=== PATIENT | male | born 1935 | race Caucasian/White ===

== ENCOUNTER 2016-04-29 09:10 | Inpatient (IN) | payer MEDICARE, OTHER ==
[~2016-04-29] VITALS: Ht 167.6 cm; Wt 96.0 kg
[2016-04-29 09:36] VITALS: TEMP 98.8
[2016-04-29] MEDS ORDERED: CEFTRIAXONE 1 GM/50 ML (PMX) 50 ML IVPB STA (10:27)
[2016-04-29] MEDS ORDERED: AZITHROMYCIN 500MG/NS (PMX) 250 ML IV STA (10:27)
[2016-04-29] MEDS ORDERED: SODIUM CHLORIDE 0.9% 1L BAG IV* STA (10:27)
--- NOTE | 2016-04-29 10:33 | ERA ---
ER Documentation Chief Complaint Date/Time DATE: 04/29/16 TIME: 10:30 Chief Complaint PRODUCTIVE COUGH X 1 WEEK HPI Patient is a 81-year-old male with history of type 2 diabetes who presents with 1-1/2 weeks of productive cough. Patient has become increasingly weak and short of breath during this time, but patient has not wanted to go see a doctor. Today the patient was unable to walk and his daughter and friend convinced him to come to the hospital. No vomiting, no measured fever, no chest pain, no vomiting. Patient does not have regular medical care or her regular doctor. ROS All systems reviewed and are negative except as per history of present illness. Medications Home Meds Reported Medications Saxagliptin Hcl* (Onglyza*) 2.5 Mg Tablet, 2.5 MG PO DAILY, TAB 04/29/16 Gemfibrozil* (Gemfibrozil*) 600 Mg Tablet, 600 MG PO BID, TAB 04/29/16 Clonidine Hcl* (Clonidine Hcl*) 0.1 Mg Tab, 0.1 MG PO Q4H, TAB ELEVATED SYSTOLIC BP>160 OR DAYSTOLIC BP>90. 04/29/16 Glipizide* (Glipizide*) 5 Mg Tablet, 5 MG PO BID, TAB 04/29/16 Metformin Hcl* (Metformin Hcl*) 1,000 Mg Tablet, 1000 MG PO WITH BREAKFAST DINNE , #60 TAB 04/29/16 Allergies Allergies: Coded Allergies: No Known Allergy (Unverified , 04/29/16) PMhx/Soc Past medical history: Diabetes mellitus type 2 Past surgical history: Denies Social history: No smoking or alcohol Hx Miscellaneous Medical Probl: Yes (DM) Hx Alcohol Use: No Hx Substance Use: No Hx Tobacco Use: No Smoking Status: Never smoker FmHx Family History: No coronary disease, No diabetes Physical Exam Vitals Vital Signs Date Time Temp Pulse Resp B/P Pulse Ox O2 Delivery O2 Flow Rate FiO2 04/29/16 14:02 96 37 135/70 94 Nasal Cannula 3.0 04/29/16 11:58 100 20 82/47 94 Nasal Cannula 3.0 04/29/16 11:11 Nasal Cannula 3 04/29/16 09:36 98.8 145 19 139/93 94 Nasal Cannula 3.0 04/29/16 09:36 Nasal Cannula 3.0 04/29/16 09:13 101.4 148 22 162/77 90 Physical Exam Const: Alert, oriented, in mild distress Head: Atraumatic Eyes: Normal Conjunctiva, no pallor or icterus ENT: Normal External Ears, Nose and Mouth. Neck: Full range of motion. No JVD. No meningismus. Resp: Moderate tachypnea. Right upper lobe rales, no wheezes Cardio: Regular rhythm, tachycardia, no murmurs, no gallop Abd: Soft, non tender, non distended. Skin: No petechiae or rashes Back: No midline or flank tenderness Ext: No cyanosis, or edema Neur: Awake and alert, cranial nerves II through XII intact, moves and feels 4 extremities appropriately Psych: Normal Mood and Affect Result Diagram: 04/29/1693204/29/16932 Results 24 hrs Laboratory Tests Test 04/29/16 09:33 04/29/16 10:41 04/29/16 11:42 04/29/16 12:30 Activated Partial Thromboplast Time 42.8Sec Alanine Aminotransferase (ALT/SGPT) 24IU/L Albumin 3.7g/dl Albumin/Globulin Ratio 0.94 Alkaline Phosphatase 121IU/L Anion Gap 24 Aspartate Amino Transf (AST/SGOT) 26IU/L B-Type Natriuretic Peptide 2120PG/ML Basophils # 0.010^3/ul Basophils % 0.2% Blood Urea Nitrogen 31mg/dl Calcium Level 9.0mg/dl Carbon Dioxide Level 18mmol/L Chloride Level 97mmol/L Creatinine 1.19mg/dl Direct Bilirubin 0.00mg/dl Eosinophils # 0.010^3/ul Eosinophils % 0.0% Globulin 3.90g/dl Glucose Level 550mg/dl Hematocrit 28.2% Hemoglobin 9.7g/dl INR International Normalized Ratio 1.30 Indirect Bilirubin 0.2mg/dl Lymphocytes # 1.010^3/ul Lymphocytes % 4.3% Mean Corpuscular Hemoglobin 30.4pg Mean Corpuscular Hemoglobin Concent 34.4g/dl Mean Corpuscular Volume 88.4fl Mean Platelet Volume 12.0fl Monocytes # 1.510^3/ul Monocytes % 6.2% Neutrophils # 21.110^3/ul Neutrophils % 88.6% Nucleated Red Blood Cells # 0.010^3/ul Nucleated Red Blood Cells % 0.0/100WBC Platelet Count 70961^3/UL Potassium Level 4.5mmol/L Prothrombin Time 16.3Sec Prothrombin Time Ratio 1.3 Red Blood Count 3.1910^6/ul Red Cell Distribution Width 13.0% Sodium Level 134mmol/L Total Bilirubin 0.2mg/dl Total Protein 7.6g/dl Troponin I 0.018ng/ml White Blood Count 23.810^3/ul Lactic Acid Level 2.8mmol/L 1.6mmol/L Urine Bacteria FEW Urine Bilirubin NEGATIVE Urine Clarity CLEAR Urine Color LT. YELLOW Urine Epithelial Cells OCCASIONAL Urine Glucose >=1000% Urine Hemoglobin 2+ Urine Ketones NEGATIVE Urine Leukocyte Esterase NEGATIVE Urine Microscopic RBC 5-10/HPF Urine Microscopic WBC 0-2/HPF Urine Nitrite NEGATIVE Urine Specific [place] 1.010 Urine Total Protein 1+ Urine Urobilinogen 0.2 E.U./dL Urine pH 5.5 Acetone Level (Chemistry) NEGATIVE Current Medications Medications (Trade) Dose Ordered Sig/David Route PRN Reason Start Time Stop Time Status Last Admin Dose Admin Sodium Chloride 2980 ml 2,980 ml BOLUS OVER 2 HOURS STAT IV* 04/29/16 10:27 04/29/16 10:30 DC 04/29/16 11:00 Ceftriaxone Sodium 50 ml @ 100 mls/hr ONCE STAT IVPB 04/29/16 10:27 04/29/16 10:56 DC 04/29/16 11:00 Azithromycin (Zithromax 500mg/ NS (Pmx)) 250 ml @ 250 mls/hr ONCE STAT IV 04/29/16 10:27 04/29/16 11:26 DC 04/29/16 11:00 Acetaminophen (Tylenol Tab) 1,000 mg ONCE STAT PO 04/29/16 11:24 04/29/16 11:26 DC 04/29/16 12:21 Insulin Human Regular (Humulin R) 10 unit ONCE ONCE SC 04/29/16 11:30 04/29/16 11:31 DC 04/29/16 12:23 Ondansetron HCl (Zofran Inj) 4 mg ER BRIDGE PRN IV NAUSEA AND/OR VOMITING 04/29/16 13:00 04/29/16 13:19 DC Acetaminophen (Tylenol Tab) 650 mg ER BRIDGE PRN PO MILD PAIN/FEVER 04/29/16 13:00 04/29/16 13:19 DC Clonidine (Catapres) 0.1 mg Q4H PRN PO sbp>160 04/29/16 13:00 Gemfibrozil 600 mg 600 mg BID PO 04/29/16 21:00 Azithromycin 250 ml @ 250 mls/hr DAILY IVPB 04/30/16 09:00 Ceftriaxone Sodium (Rocephin) 50 ml @ 100 mls/hr DAILY IVPB 04/30/16 09:00 Insulin Aspart (Novolog Insulin Pen) NOVOLOG *MILD* ALGORITHM WITH MEALS BEDTIME SC 04/29/16 18:00 Insulin Glargine (Lantus) 12 unit DAILY@08 SC 04/30/16 08:00 Insulin Aspart (Novolog Insulin Pen) 4 unit WITH MEALS SC 04/29/16 18:00 Miscellaneous Information (* Miscellaneous Pharmacy Order) HYPOGLYCEMIA PROTOCOL w... ONCE ONCE XX 04/29/16 13:00 04/29/16 13:12 DC Miscellaneous Information (* Miscellaneous Pharmacy Order) Discontinue Glyburide, Glipizide,... ONCE ONCE XX 04/29/16 13:00 04/29/16 13:12 DC Miscellaneous Information (* Miscellaneous Pharmacy Order) Discontinue all previ... ONCE ONCE XX 04/29/16 13:00 04/29/16 13:12 DC Amlodipine Besylate (Norvasc) 5 mg BID PO 04/29/16 21:00 Albuterol/ Ipratropium (Duoneb) 3 ml Q4HWA HHN 04/29/16 13:00 Miscellaneous Information 1 ea NOTE XX 04/29/16 13:30 Glucose (Glutose) 15 gm Q15M PRN PO DECREASED GLUCOSE 04/29/16 13:30 Glucose (Glutose) 22.5 gm Q15M PRN PO DECREASED GLUCOSE 04/29/16 13:30 Dextrose (D50w Syringe) 25 ml Q15M PRN IV DECREASED GLUCOSE 04/29/16 13:30 Dextrose (D50w Syringe) 50 ml Q15M PRN IV DECREASED GLUCOSE 04/29/16 13:30 Glucagon (Glucagen) 1 mg Q15M PRN IM DECREASED GLUCOSE 04/29/16 13:30 Glucose (Glutose) 15 gm Q15M PRN BUCCAL DECREASED GLUCOSE 04/29/16 13:30 IV Flush (NS 3 ml) 3 ml PER PROTOCOL IV 04/29/16 13:30 Ondansetron HCl (Zofran Inj) 4 mg Q6H PRN IV NAUSEA AND/OR VOMITING 04/29/16 13:30 Acetaminophen (Tylenol Tab) 650 mg Q6H PRN PO PAIN LEVEL 1-3 OR FEVER 04/29/16 13:30 Acetaminophen (Tylenol Supp) 650 mg Q6H PRN AL PAIN LEVEL 1-3 OR FEVER 04/29/16 13:30 Acetaminophen/ Hydrocodone Bitart ([place] (5/325)) 1 tab Q6H PRN PO MODERATE PAIN LEVEL 4-6 04/29/16 13:30 Acetaminophen/ Hydrocodone Bitart ([place] (5/325)) 2 tab Q6H PRN PO SEVERE PAIN LEVEL 7-10 04/29/16 13:30 Morphine Sulfate (morphine) 2 mg Q4H PRN IV SEVERE PAIN LEVEL 7-10 04/29/16 13:30 Docusate Sodium (Colace) 100 mg Q12H PRN PO CONSTIPATION 04/29/16 13:30 Magnesium Hydroxide (Milk Of Mag) 30 ml DAILY PRN PO CONSTIPATION 04/29/16 13:30 Bisacodyl (Dulcolax Supp) 10 mg DAILY PRN AL CONSTIPATION 04/29/16 13:30 Pantoprazole (Protonix Iv) 40 mg DAILY@06 IV 04/30/16 06:00 Furosemide 20 mg 20 mg DAILY IV 04/30/16 09:00 Sodium Chloride (NS) 1,000 ml @ 75 mls/hr [id number] IV 04/29/16 14:00 IV Flush 10 ml 10 ml STK-MED ONCE .ROUTE 04/29/16 14:15 04/29/16 14:16 DC 04/29/16 14:19 Sodium Chloride (NS) 100 ml @ ud STK-MED ONCE .ROUTE 04/29/16 14:15 04/29/16 14:16 DC 04/29/16 14:19 Iohexol (Omnipaque 300mg/ ml) 150 ml STK-MED ONCE .ROUTE 04/29/16 14:15 04/29/16 14:16 DC 04/29/16 14:19 Procedures/MDM EKG: Time 1101, rate 143, atrial fibrillation with rapid ventricular response, right bundle branch block, left axis deviation, no ischemic ST-T wave changes. MPRESSION: 1. There is a large elliptical density measuring up to 13 cm in long axis by 6 cm cephalocaudad in the right mid lung field. A loculated pleural effusion, round pneumonia or mass might present this fashion. A contrast-enhanced CT chest can be performed for additional evaluation if clinically indicated. Follow -up imaging is needed to confirm resolution of the density. 2. Atherosclerosis with ectasia of the thoracic aorta. 3. Spondylosis of the thoracic spine. 4. A suboptimal inspiratory effort with compressive atelectasis in the bases of the lungs. MDM: Patient with one half weeks of productive cough and progressive weakness, found to have pneumonia in the right lung. Initially tachycardic with fever so sepsis protocol initiated and patient given IV fluids and antibiotics for community-acquired pneumonia. Patient had low O2 sat on room air, with O2 sat of 91-92% on 2 L nasal cannula, and tachypnea to the 30s. Lactic acid is slightly elevated, blood pressure is high normal. EKG demonstrates new onset atrial fibrillation with tachycardia. BNP is slightly elevated, and chest x- ray shows cardiomegaly. Given likely sepsis and possibility of CHF, I felt it was best to give the patient antipyretics and fluids before attempting rate control with diltiazem, due to the risk of inducing pulmonary edema. I discussed CODE STATUS with the patient and family, and they indicated that the patient is full code at this time. There is no evidence of coronary ischemia. Glucose is 550, but there is no evidence of ketones in the urine to suggest ketoacidosis. Patient was treated with subcutaneous insulin. Potassium is normal. On reevaluation patient's heart rate has normalized and blood pressure is within normal limits. Will admit to Dr. Harrell for further workup and treatment. Critical Care: Time: 32 minutes exlcuding all billable procedures. Treatments/Evaluations: Close monitoring and treatment of unstable vital signs, cardiorespiratory, and neurologic status, while maintaining tight balance of fluid, respiratory, and cardiac interventions. Specifically, consideration of rate control in the setting of new onset A. fib with risk of inducing pulmonary edema, as well as requirement for fluid administration in the setting of sepsis, monitoring of patient with hypoxemia and tachypnea for potential worsening of symptoms which would require intubation, discussion of CODE STATUS, and consideration of diabetes related complications. Departure Diagnosis: Primary Impression: Community acquired pneumonia Additional Impressions: Hypoxemia Rapid atrial fibrillation Hyperglycemia Sepsis Condition: SHO Schroeder Apr 29, 2016 10:33
[2016-04-29 10:58] LABS: ADD SCAN DIFF NO
[2016-04-29 11:01] LABS: ABNORMAL IP MESSAGE 1; BASOPHILS % 0.2 % (0.0-2.0); HEMATOCRIT 28.2 % (42.0-52.0); HEMOGLOBIN 9.7 g/dl (14.0-18.0); LYMPHOCYTES % 4.3 % (15.0-51.0); MEAN CORPUSCULAR HEMOGLOBIN 30.4 pg (29.0-33.0); MEAN CORPUSCULAR HGB CONC 34.4 g/dl (32.0-37.0); MEAN CORPUSCULAR VOLUME 88.4 fl (82.0-101.0); MONOCYTE # 1.5 10^3/ul (0.3-0.9); MONOCYTES % 6.2 % (0.0-11.0); NEUTROPHIL # 21.1 10^3/ul (1.6-7.5); NEUTROPHILS % 88.6 % (39.0-77.0); PLATELET COUNT 282 10^3/UL (140-415); RED BLOOD COUNT 3.19 10^6/ul (4.70-6.10); WHITE BLOOD COUNT 23.8 10^3/ul (4.8-10.8)
[2016-04-29 11:12] LABS: INR 1.3; PROTIME 16.3 Sec (12.2-14.2); PT RATIO 1.3
[2016-04-29 11:13] LABS: PARTIAL THROMBOPLASTIN TIME 42.8 Sec (25.0-35.0)
[2016-04-29 11:15] LABS: ALBUMIN 3.7 g/dl (3.3-4.9); POTASSIUM 4.5 mmol/L (3.5-5.1)
[2016-04-29 11:18] LABS: ALBUMIN/GLOBULIN RATIO 0.94; BILIRUBIN,INDIRECT 0.2 mg/dl (0-1.1); BILIRUBIN,TOTAL 0.2 mg/dl (0.2-1.3); CREATININE 1.19 mg/dl (0.61-1.24); TOTAL PROTEIN 7.6 g/dl (6.1-8.1)
[2016-04-29] MEDS ORDERED: METF1000 PO (11:18)
[2016-04-29] MEDS ORDERED: GLIP5TAB13 PO (11:20)
[2016-04-29] MEDS ORDERED: SAXA2.5T PO (11:23)
[2016-04-29] MEDS ORDERED: GEMF600T60 PO (11:23)
[2016-04-29] MEDS ORDERED: CLON-379 PO (11:23)
[2016-04-29] MEDS ORDERED: ACETAMINOPHEN 500 MG TAB PO STA (11:24)
[2016-04-29 11:30] LABS: TROPONIN-I 0.018 ng/ml (0.00-0.12)
[2016-04-29] MEDS ORDERED: INSULIN REGULAR, HUMAN 100 UNIT/1 ML 3ML VIAL SC ONE (11:30)
[2016-04-29 12:01] LABS: ADD UMIC YES; URINE BILIRUBIN (Dip) NEGATIVE (NEGATIVE); URINE BLOOD (Dip) 2+ (NEGATIVE); URINE COLOR LT. YELLOW (YELLOW); URINE GLUCOSE (Dip) >=1000 % (NEGATIVE); URINE KETONES (Dip) NEGATIVE (NEGATIVE); URINE LEUKOCYTE ESTERASE (Dip) NEGATIVE (NEGATIVE); URINE NITRITE (Dip) NEGATIVE (NEGATIVE); URINE TOTAL PROTEIN (Dip) 1+ (NEGATIVE); URINE UROBILINOGEN (Dip) 0.2 E.U./dL (0.1-1.0)
--- NOTE | 2016-04-29 12:11 | RADRPT ---
PROCEDURE: XR Chest. CLINICAL INDICATION: 81 real male with sepsis. TECHNIQUE: Single frontal view of the chest was obtained COMPARISON: No. FINDINGS: The soft tissues are normal. There are degenerative osteophytes in the thoracic spine. No bone met astasis or bone destruction is noted. The heart, cardiomediastinal silhouette, pulmonary vasculatur e and hilar structures are normal. There is a nodular density projecting lateral to the right hilum. There is increased density in the right hilum. There is a suboptimal inspiration with compressive atelectasis in the bases of the lungs. There are vascular calcifications in the left sided aortic a rch. The costophrenic angles are normal. IMPRESSION: 1. There is a large elliptical density measuring up to 13 cm in long axis by 6 cm cephalocaudad in t he right mid lung field. A loculated pleural effusion, round pneumonia or mass might present this f ashion. A contrast-enhanced CT chest can be performed for additional evaluation if clinically indic ated. Follow-up imaging is needed to confirm resolution of the density. 2. Atherosclerosis with ectasia of the thoracic aorta. 3. Spondylosis of the thoracic spine. 4. A suboptimal inspiratory effort with compressive atelectasis in the bases of the lungs. RPTAT:AAJJ Physician Calista Date Time Electronically viewed and signed by Physician Calista on 04/29/2016 12:10 /
[2016-04-29 12:27] LABS: BACTERIA,URINE FEW
[2016-04-29] MEDS ORDERED: ONDANSETRON 4 MG INJ IV PRN ×2 (13:00→13:30)
[2016-04-29] MEDS ORDERED: ACETAMINOPHEN 325 MG TAB PO PRN ×2 (13:00→13:30)
[2016-04-29] MEDS ORDERED: DEXTROSE 50% 50 ML SYRINGE IV PRN ×2 (13:30)
[2016-04-29] MEDS ORDERED: BISACODYL 10 MG SUPP PR PRN (13:30)
[2016-04-29] MEDS ORDERED: GLUCOSE GEL 15 GRAM TUBE BUCCAL PRN (13:30)
[2016-04-29] MEDS ORDERED: ACETAMINOPHEN 650 MG SUPP PR PRN (13:30)
[2016-04-29] MEDS ORDERED: NACL 0.9% 3 ML SYG IV SCH (13:30)
[2016-04-29] MEDS ORDERED: DOCUSATE SODIUM 100 MG CAP PO PRN (13:30)
[2016-04-29] MEDS ORDERED: GLUCAGON 1 MG INJ IM PRN (13:30)
[2016-04-29] MEDS ORDERED: morphine 2 MG INJ IV PRN (13:30)
[2016-04-29] MEDS ORDERED: HYDROCODONE/APAP (5/325) TAB PO PRN ×2 (13:30)
[2016-04-29] MEDS ORDERED: MAGNESIUM HYDROXIDE 30ML CUP PO PRN (13:30)
[2016-04-29] MEDS ORDERED: GLUCOSE GEL 15 GRAM TUBE PO PRN ×2 (13:30)
[2016-04-29] MEDS: ALBUTEROL/IPRATROPIUM (NEB) 3 ML AMP HHN SCH (14:00)
[2016-04-29] MEDS ORDERED: IOHEXOL 300MG/ML 150 ML BTL ONE (14:15)
[2016-04-29] MEDS ORDERED: SOD CHLORIDE 0.9% 100 ML ONE (14:15)
[2016-04-29] MEDS: SOD CHLORIDE 0.9% 1,000 ML IV SCH (16:06)
--- NOTE | 2016-04-29 16:08 | RADRPT ---
PROCEDURE: CT Chest with contrast. CLINICAL INDICATION: Abnormal chest x-ray. Right middle lobe mass. TECHNIQUE: CT scan of the chest with contrast was performed following the uncomplicated intravenou s administration of 100 cc of Omnipaque-300. Coronal and sagittal reformatted images were obtained from the axial source images. Images were reviewed on a high-resolution PACS workstation. CTDIvol (m Gy): 14.88; Total Exam DLP (mGy-cm): 644.80. One or more of the following dose reduction techniques were utilized: - Automated exposure control. - Adjustment of the mA and/or kV according to patient size. - Use of iterative reconstruction technique. COMPARISON: Chest x-ray 04/29/2016. FINDINGS: Limited imaging of the lower neck is unremarkable. The heart is not enlarged. There is no pericardial effusion. There is no bulky mediastinal, hilar or axillary lymphadenopathy. Prominent mediastinal lymph nodes are present and may be reactive in na ture. The thoracic aorta is normal in caliber. Atherosclerotic calcification is present. Coronary artery calcifications are present. The pulmonary arteries are not enlarged. Low lung volumes are present. A large area of consolidation within the posterior inferior aspect of the right upper lobe along the major and a small portion of the minor fissure is present. Air bronc hograms are present. There is no displacement of vessels. Patchy ill-defined consolidation is seen within the left lower lobe. Diffuse bronchial wall thickening is observed. There is no pleural ef fusion. Limited imaging of the upper abdomen is unremarkable. Multilevel degenerative changes are present throughout the thoracic spine. Body wall soft tissues a re unremarkable. IMPRESSION: Consolidation within the right upper lobe with patchy consolidation within the left lower lobe. Irma ging appearance is most likely the result of pneumonia. Correlate with appropriate clinical laborat ory data and signs and symptomatology. Follow-up is required to ensure resolution. Mild reactive mediastinal lymphadenopathy. RPTAT: HLST .Katie Nuno MD, Date Time Electronically viewed and signed by .Katie Nuno MD, MD on 04/29/2016 16:08 .T/
[2016-04-29 17:20] VITALS: Ht 167.6 cm; Wt 96.0 kg
--- NOTE | 2016-04-29 18:15 | HP ---
DATE OF ADMISSION: 04/29/2016 CHIEF COMPLAINT: Shortness of breath and generalized weakness. HISTORY OF PRESENT ILLNESS: This is an 81-year-old male with history of hypertension, prostate canc er, diabetes, suspect dyslipidemia who came to [facility] due to reports of increa sed shortness of breath. According to the patient, he had a cold about a week ago with sore throat and coughing. He denies taking any antibiotics for this issue. He did not initially want to go to the hospital and as such progressively got weak, more notably 4 days prior to this admission. He di d report having subjective fevers. He was brought to [facility] by his daughter ebonie kohler to his increased generalized weakness. Of note, patient's family did report that patient is norm ally active and able to walk, drive the car and do house chores. When he was brought to the [facility] he was noted with a white count of 23.8. Also, slightly anemic with hemoglobin of 9.7 and hematoc rit of 28.2. He was noted with a blood glucose of 550 and a lactic acid of 2.8 with a BNP of 2120. He also was noted to have a fever of 101.4. His most recent chest x-ray also showed him to have la rge elliptical density measuring up to 13 cm in long axis x 6 cm in the right mid lung field. There was also suspect loculated pleural effusion versus round pneumonia or mass suspect for this. He wa s also seen with suboptimal inspiratory effort with compressive atelectasis in the lung bases. Curr ently, the patient remains on O2 nasal cannula on 3 liters, satting with O2 sat of 94%. He denies a ny chest pain. He does report having some shortness of breath on exertion. No nausea, vomiting or abdominal pain. No reported increase of swelling in his legs. We will evaluate him for the aforeme ntioned issues. MEDICAL AND SURGICAL HISTORY 1. Prostate cancer status post reported radiation 10 years ago. 2. Hypertension. 3. Diabetes. 4. Dyslipidemia. SOCIAL HISTORY: The patient denies any cigarette smoking, alcohol consumption or illicit drug use. ALLERGIES: NO KNOWN ALLERGIES. FAMILY HISTORY: Patient does report having on mother's side lung cancer and on father's side Lydia Ge hrig's disease as well as heart disease. HOME MEDICATIONS: 1. Clonidine 0.1 mg p.o. q.4h. for systolic blood pressure greater than 160. 2. Gemfibrozil 600 mg p.o. b.i.d. 3. Glipizide 5 mg p.o. b.i.d. 4. Metformin 1000 mg p.o. b.i.d. 5. Onglyza 2.5 mg p.o. every day. REVIEW OF SYSTEMS: A 12-point review of systems obtained and is entirely negative except that menti oned in history of present illness. PHYSICAL EXAMINATION VITAL SIGNS: Temperature is 98.8, pulse is 100, respiratory rate 20, blood pressure seen at 139/93 and pulse oximetry 94% on 3 liters nasal cannula. GENERAL: This is an 81-year-old male with no apparent distress at this time. HEENT: Pupils equal, round and reactive to light. Anicteric sclerae noted with a slight ptosis on the right eye. NECK: Supple, nontender, no JVD. CARDIOVASCULAR: S1, S2 auscultated, regular rate to tachycardic. PULMONARY: Noted with rhonchi on bilateral lung guy. ABDOMEN: Soft, nontender, nondistended. EXTREMITIES: No pitting edema bilateral lower extremities. SKIN: Warm, dry, and intact. NEUROLOGIC: Alert and oriented x3. LABORATORY DATA: Sodium 134, potassium is 4.5, BUN is 31, creatinine is 1.19, glucose 550, lactic a mike 2.8. BNP 2120. WBC 22.8, hemoglobin 9.7, hematocrit 28.2, platelets are 282. IMAGING: Chest x-ray done on 04/29/2016 did show large elliptical density measuring up to 13 cm in the long axis x 6 mm in the right mid lung field. There is differential for loculated pleural effus ion versus round pneumonia versus mass. There was also seen suboptimal inspiratory effort with comp ressive atelectasis in the lung bases and atherosclerosis of the thoracic aorta. IMPRESSION AND PLAN: 1. Sepsis, pneumonia with associated shortness of breath and generalized weakness. Will continue a ntibiotics. Follow up on leblanc cultures. We will provide with DuoNeb therapy around the clock and as needed. Continue with O2. 2. Reported atrial fibrillation with RVR. Follow up echocardiogram. 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 3. Large elliptical density measuring up to 13 cm in the long axis x 6 cm in the right mid lung fie ld. We will follow up with CT scan of the chest with contrast. 4. Uncontrolled diabetes. Patient noted with a glucose of 550 on admission. Start on insulin for now. Follow up on A1c. 5. Suspect congestive heart failure. Follow up echocardiogram. Patient with elevated BNP. Start on diuretic. 6. Anemia. Followup on iron profile. 7. Leukocytosis secondary to #1. Trend lactic acid. Continue antibiotics. 8. Deep venous thrombosis prophylaxis: Use SCDs. ADMISSION PROCESS TIME: Forty-five minutes. Discussed plan of care with Dr. Harrell. Dictated By: SERA BARROS REGISTERED ROUTE ASSOCIATE for ARABELLA HARRELL MD RR/NTS Conf#: [id number] DID#: [id number]
[2016-04-29 19:13] VITALS: PULSE 99
[2016-04-29 20:50] VITALS: PULSE 96
[2016-04-29] MEDS: INSULIN ASPART [NOVOLOG] 3 ML PEN SC SCH ×3 (21:00→22:00)
[2016-04-29 21:11] VITALS: BP 160/74; RESP 18
[2016-04-29] MEDS: AMLODIPINE 5 MG TAB PO SCH (21:52)
[2016-04-29] MEDS: GEMFIBROZIL 600 MG TAB PO SCH (21:52)
[2016-04-30] VITALS (12 sets, daily range): BP systolic 110–151; BP diastolic 53–73; PULSE 71–80; RESP 15–18
[2016-04-30] MEDS: ALBUTEROL/IPRATROPIUM (NEB) 3 ML AMP HHN SCH ×5 (01:29→20:37)
[2016-04-30] MEDS: SOD CHLORIDE 0.9% 1,000 ML IV SCH (06:06)
--- NOTE | 2016-04-30 07:37 | CONS ---
DATE OF ADMISSION: 04/29/2016 DATE OF CONSULTATION: 04/29/2016 CARDIOLOGY CONSULTATION REFERRING PHYSICIAN: Carson Harrell MD REASON FOR EVALUATION: Atrial fibrillation with rapid ventricular response, shortness of breath, ch est pain. HISTORY OF PRESENT ILLNESS: Mr. Martin is an 81-year-old gentleman with history of hypertension, pro state cancer, diabetes, history of dyslipidemia who comes to the hospital now for evaluation of shor tness of breath. The patient had sore throat and cough for several days. He presented to [facility] where he was noted to be in atrial fibrillation. I reviewed his EKG carefully. He appears to be in a fast rhythm with a heart rate of 140s; however, it is difficult to truly stat e that this is atrial fibrillation. I think any fast rhythm would look similar on EKG and now he is in sinus rhythm. I think for now conservative therapy is expected. I am not going to anticoagulat e the patient both because I am not convinced this is atrial fibrillation and also because the patie nt has large pericardial effusion which might require further surgical intervention. For now, a CT of the chest is following, will facilitate patient for a stress test given his chest pain. PAST MEDICAL HISTORY: 1. ____ prostate cancer post radiation. 2. History of hypertension. 3. Dyslipidemia. 4. History of diabetes. 5. History of debilitated state. SOCIAL HISTORY: The patient does not smoke, does not drink, does not use any drugs. FAMILY HISTORY: Negative for sudden cardiac , premature coronary artery disease. There is his tory of Lydia Gehrig's disease in the family. ALLERGIES: NO KNOWN DRUG ALLERGIES. MEDICATIONS: Clonidine 0.1 mg, gemfibrozil 600 mg b.i.d., ____/metformin 1 gram p.o. b.i.d. and Jefferson lyza. REVIEW OF SYSTEMS: CONSTITUTIONAL: No fevers, no chills, recent cough or shortness of breath. HEENT: No changes in vision or hearing. CARDIAC: Chest pain as reported. RESPIRATORY: Short of breath, acute on chronic. GASTROINTESTINAL: No nausea, vomiting, diarrhea, constipation. GENITOURINARY: No dysuria, hematuria. NEUROLOGIC: No focal deficits. HEMATOLOGIC: ____ PSYCHIATRIC: ____ PHYSICAL EXAMINATION: VITAL SIGNS: Temperature is 98.7, heart rate is 99, blood pressure ____. GENERAL: He is a well-nourished gentleman in no acute distress, alert and oriented ____, somewhat a benjamin of his condition. HEAD: Normocephalic, atraumatic. Eyes anicteric. NECK: Supple. JVD 6 to 7 cm. There is no lymphadenopathy, no thyromegaly. HEART: ____ with soft ____ murmur mid chest, changes with respiration. PMI is nondisplaced. ____ no S3. LUNGS: Coarse at bases. ABDOMEN: Distended, bowel sounds are present. There is no hepatosplenomegaly. EKG reviewed by me on admission sinus rhythm at [address] changes, SVT versus ____ ruled out. LABORATORY DATA: White blood cell count 23.8, hemoglobin 9.7, platelets 232. INR is 1.3. Troponin is negative at 0.018. ASSESSMENT AND PLAN: 1. Possible atrial fibrillation. The patient ____ report of supraventricular tachycardia, possible atrial fibrillation, although I am not convinced this is so. For now we will initiate him on aspir in 325. He is in much better rate control. We will continue to adjust therapy. The patient is on a beta ____. We will place the patient on a beta kevin as well. 2. Recurrent pleural effusion. The patient's pleural effusion might require thoracentesis. Contin ue to monitor ____, denies chest pain. The patient did not rule in for ischemia. Continue diuresis . Stress test will be facilitated for tomorrow. 3. Hypertension. Blood pressure modestly well controlled. Continue medical therapy. 4. Pneumonia. Continue patient antibiotics as needed. 5. Diabetes. Continue diabetic optimization ____. We will keep the patient euvolemic. I would like to thank Dr. Harrell for referring this patient for my evaluation. Dictated By: SWEETIE MCNEILL MD ML/JOHN Conf#: [id number] DID#: [id number]
[2016-04-30] MEDS ORDERED: INSULIN GLARGINE [LANtus] 3 ML PEN SC SCH (08:00)
[2016-04-30] MEDS ORDERED: VANCOMYCIN IV PER PHARMACY XX SCH (08:00)
[2016-04-30 08:03] LABS: POTASSIUM 3.9 mmol/L (3.5-5.1)
[2016-04-30 08:05] LABS: ALBUMIN/GLOBULIN RATIO 0.83; CREATININE 0.93 mg/dl (0.61-1.24); TOTAL PROTEIN 6.6 g/dl (6.1-8.1)
[2016-04-30 08:06] LABS: CALCIUM 8.3 mg/dl (8.4-10.2); MAGNESIUM 2.1 mg/dl (1.7-2.5); PHOSPHORUS 2.6 mg/dl (2.5-4.9)
[2016-04-30 08:07] LABS: CHOL/HDL RATIO 4.8 RATIO
[2016-04-30 08:08] LABS: IRON 17 ug/dl (35-150)
[2016-04-30 08:17] LABS: TOTAL IRON BINDING CAPACITY 266 ug/dl (241-421)
[2016-04-30 08:52] LABS: THYROID STIMULATING HORMONE 1.02 MIU/L (0.465-4.680)
[2016-04-30] MEDS: AZITHROMYCIN 500MG/NS (PMX) 250 ML IVPB SCH (09:00)
[2016-04-30] MEDS ORDERED: CEFTRIAXONE 2 GM/50 ML (PMX) 50 ML IVPB SCH (09:00)
[2016-04-30] MEDS: PANTOPRAZOLE 40 MG INJ IV SCH (09:50)
[2016-04-30] MEDS: INSULIN ASPART [NOVOLOG] 3 ML PEN SC SCH ×6 (09:54→21:00)
[2016-04-30] MEDS: GEMFIBROZIL 600 MG TAB PO SCH (09:55)
[2016-04-30] MEDS: AMLODIPINE 5 MG TAB PO SCH (09:56)
[2016-04-30] MEDS: FUROSEMIDE 20 MG INJ IV SCH (09:57)
[2016-04-30] MEDS ORDERED: VANCOMYCIN 2 GM in SOD CHLORIDE 0.9% 500 ML IVPB SCH (11:00)
[2016-04-30] MEDS ORDERED: REGADENOSON 0.4 MG/5 ML SYG ONE (11:40)
--- NOTE | 2016-04-30 12:36 | CONS ---
Date/Time of Note Date/Time of Note DATE: 04/30/16 TIME: 12:32 Assessment/Plan Assessment/Plan Chief Complaint/Hosp Course Imp: 1.abnl ecg-asses for acs-negative troponin's 2.HTN 3.H/O PAF 4.PNA 5.Elevated BNP asses for CHF Recc: -Tele -0continue gentle daily lasix diuresis -Continue abx's and f/u cx data -Will f/u echo -Lexiscan stress test today as ordered -Continue coreg/norvasc and follow BP closely Problems: Consultation Date/Type/Reason Admit Date/Time Apr 29, 2016 at 12:34 Initial Consult Date 04/29/16 Type of Consultation: Cardiology Reason for Consultation cardiac arrythmia Referring Provider: ARABELLA RODRIGUEZ Exam/Review of Systems Vital Signs Vitals Vital Signs Date Time Temp Pulse Resp B/P Pulse Ox O2 Delivery O2 Flow Rate FiO2 04/30/16 10:04 94 3.0 04/30/16 10:04 70 20 Nasal Cannula 04/30/16 08:05 97.9 132/67 Exam Review of Systems: CONSTITUTIONAL: No fevers, chills. PULMONARY: No sob CARDIOVASCULAR: No chest pain/palpitations GASTROINTESTINAL: No nausea/vomiting. GENITOURINARY: No hematuria/dysuria. MUSCULOSKELETAL: No myagias/arthalgias. PSYCHIATRIC: The patient denies depression. NEUROLOGIC: No weakness Constitutional: alert Psych: no complaints Head: normocephalic ENMT: mucosa pink and moist Neck: jvd (8-9 cm water), supple Respiratory: diminished breath sounds (at bases/B) Cardiovascular: regular rate and rhythm Gastrointestinal: non-tender, soft Musculoskeletal: muscle tone (normal) Extremities: edema (none) Neurological: other (No focal deficits) Results Result Diagram: 04/29/16 0933 04/30/16 0640 Results 24 hrs Laboratory Tests Test 04/29/16 14:29 04/29/16 20:33 04/30/16 06:40 04/30/16 08:04 Lactic Acid Level 1.9 Bedside Glucose 290 H 282 H Alanine Aminotransferase (ALT/SGPT) 26 Albumin 3.0 L Albumin/Globulin Ratio 0.83 Alkaline Phosphatase 105 Anion Gap 18 H Aspartate Amino Transf (AST/SGOT) 31 Blood Urea Nitrogen 29 H Calcium Level 8.3 L Carbon Dioxide Level 18 L Chloride Level 107 # Cholesterol Level 83 L Cholesterol/HDL Ratio 4.8 Creatinine 0.93 Direct Bilirubin 0.00 Free Thyroxine Index 2.30 Globulin 3.60 H Glucose Level 265 #H HDL Cholesterol 17 L Hemoglobin A1c 8.4 H Indirect Bilirubin 0.0 Iron Level 17 L LDL Cholesterol, Calculated 44 Magnesium Level 2.1 Percent Iron Saturation 6 L Phosphorus Level 2.6 Potassium Level 3.9 Sodium Level 139 Thyroid Stimulating Hormone (TSH) 1.020 Thyroxine (T4) 4.7 L Total Bilirubin 0.0 L Total Iron Binding Capacity 266 Total Protein 6.6 # Triglycerides Level 108 Triiodothyronine (T3) Uptake 49.0 H Medications Medications Current Medications Clonidine (Catapres) 0.1 mg Q4H PRN PO sbp>160; Start 04/29/16 at 13:00 Gemfibrozil 600 mg 600 mg BID PO Last administered on 04/30/16 09:55; Admin Dose 600 MG; Start 04/29/16 at 21:00 Azithromycin 250 ml @ 250 mls/hr DAILY IVPB ; Start 04/30/16 at 09:00 Ceftriaxone Sodium (Rocephin) 50 ml @ 100 mls/hr DAILY IVPB Last administered on 04/30/16 09:57; Admin Dose 100 MLS/HR; Start 04/30/16 at 09:00 Insulin Glargine (Lantus) 12 unit DAILY@08 SC Last administered on 04/30/16 09 :55; Admin Dose 12 UNIT; Start 04/30/16 at 08:00 Amlodipine Besylate (Norvasc) 5 mg BID PO Last administered on 04/30/16 09:56 ; Admin Dose 5 MG; Start 04/29/16 at 21:00 Miscellaneous Information 1 ea NOTE XX ; Start 04/29/16 at 13:30 Glucose (Glutose) 15 gm Q15M PRN PO DECREASED GLUCOSE; Start 04/29/16 at 13:30 Glucose (Glutose) 22.5 gm Q15M PRN PO DECREASED GLUCOSE; Start 04/29/16 at 13: 30 Dextrose (D50w Syringe) 25 ml Q15M PRN IV DECREASED GLUCOSE; Start 04/29/16 at 13:30 Dextrose (D50w Syringe) 50 ml Q15M PRN IV DECREASED GLUCOSE; Start 04/29/16 at 13:30 Glucagon (Glucagen) 1 mg Q15M PRN IM DECREASED GLUCOSE; Start 04/29/16 at 13:30 Glucose (Glutose) 15 gm Q15M PRN BUCCAL DECREASED GLUCOSE; Start 04/29/16 at 13 :30 Ondansetron HCl (Zofran Inj) 4 mg Q6H PRN IV NAUSEA AND/OR VOMITING; Start at 13:30 Acetaminophen (Tylenol Tab) 650 mg Q6H PRN PO PAIN LEVEL 1-3 OR FEVER; Start at 13:30 Acetaminophen (Tylenol Supp) 650 mg Q6H PRN DE PAIN LEVEL 1-3 OR FEVER; Start 04/29/16 at 13:30 Acetaminophen/ Hydrocodone Bitart ([place] (5/325)) 1 tab Q6H PRN PO MODERATE PAIN LEVEL 4-6; Start 04/29/16 at 13:30 Acetaminophen/ Hydrocodone Bitart ([place] (5/325)) 2 tab Q6H PRN PO SEVERE PAIN LEVEL 7-10; Start 04/29/16 at 13:30 Morphine Sulfate (morphine) 2 mg Q4H PRN IV SEVERE PAIN LEVEL 7-10; Start 04/29 at 13:30 Docusate Sodium (Colace) 100 mg Q12H PRN PO CONSTIPATION; Start 04/29/16 at 13: 30 Magnesium Hydroxide (Milk Of Mag) 30 ml DAILY PRN PO CONSTIPATION; Start at 13:30 Bisacodyl (Dulcolax Supp) 10 mg DAILY PRN DE CONSTIPATION; Start 04/29/16 at 13 :30 Pantoprazole (Protonix Iv) 40 mg DAILY@06 IV Last administered on 04/30/16 09: 50; Admin Dose 40 MG; Start 04/30/16 at 06:00 Furosemide 20 mg 20 mg DAILY IV Last administered on 04/30/16 09:57; Admin Dose 20 MG; Start 04/30/16 at 09:00 Sodium Chloride (NS) 1,000 ml @ 75 mls/hr [id number] IV Last administered on 04/30 06:06; Admin Dose 75 MLS/HR; Start 04/29/16 at 14:00 Carvedilol 12.5 mg 12.5 mg BID PO Last administered on 3/20/17at 09:56; Admin Dose 12.5 MG; Start 04/29/16 at 21:00 Vancomycin HCl/ Sodium Chloride (Vancocin/NS) 500 ml @ 125 mls/hr ONCE IVPB ; Start 04/30/16 at 11:00; Stop 04/30/16 at 15:00 FARAZ CHANCE 20, 2017 12:36
--- NOTE | 2016-04-30 14:31 | RADRPT ---
PROCEDURE: Lexiscan myocardial perfusion study CLINICAL INDICATION: 81 -year-old patient complaining of chest pain. TECHNIQUE: Lexiscan 0.4 mg intravenously separate acquisition gated myocardial perfusion SPECT usi ng Tc 99m Myoview 29.9 mCi intravenously at stress and Tc-99m Myoview, 10.0 mCi intravenously at res t was performed using the rest/stress sequence. Poststress Myoview SPECT images were obtained in th e supine position. COMPARISON: Previous study dated May 15, 2011 is not available for correlation at the time of thi s interpretation. FINDINGS: Perfusion images reveal no evidence of perfusion defects. Lexiscan post stress gated SPECT images demonstrate no wall motion abnormalities. IMPRESSION: 1. No evidence of perfusion defects. 2. No wall motion abnormalities. 3. The left ventricle ejection fraction at stress is 57% . A call report was made to Dr. Wagner at 02:31 p.m. on April 30, 2016. RPTAT: HH .Jo Ann Platt MD, Date Time Electronically viewed and signed by .Jo Ann Platt MD, on 04/30/2016 14:31 .L/
--- NOTE | 2016-04-30 14:54 | PN ---
DATE: 04/30/2016 TIME OF EVALUATION: 1330. SUBJECTIVE DATA: Denies any shortness of breath. Denies any chest pain. OBJECTIVE DATA: VITAL SIGNS: Temperature 97.9, pulse rate 72, respiratory rate 20, blood pressure 132/67, oxygen saturation 94% on low flow O2. GENERAL: This is an obese male patient lying in bed in no apparent distress. HEENT: Head normocephalic and atraumatic. Eyes: Anicteric sclerae. Conjunctivae clear. ENT: Nasal septum is midline. Oral mucosa is dry. NECK: Supple. No JVD noticed. RESPIRATORY: Bilaterally diminished breath sounds. Coarse breath sounds heard on the right side. No use of accessory muscles of respiration. CARDIAC: Regular rate and rhythm with a soft systolic murmur. ABDOMEN: Soft, nontender and nondistended. Bowel sounds positive in all 4 quadrants. GENITOURINARY: Deferred. EXTREMITIES: No cyanosis, no clubbing, no edema. Peripheral pulses are palpable. NEUROLOGIC: The patient is awake, alert and oriented. Cranial nerves are grossly intact. LABORATORY AND DIAGNOSTIC DATA: Sodium 139, potassium 3.9, chloride 107, carbon dioxide 18, anion gap 18, BUN 29 , creatinine 0.93, glucose 265, calcium 8.3, phosphorus 2.6, magnesium 2.1. ASSESSMENT AND PLAN: 1. Paroxysmal atrial fibrillation. Currently converted to sinus rhythm. The patient being followed by Cardiology. The patient to be ruled out for any underlying acute coronary syndrome. Status post cardiac stress test. 2. Right upper lobe patchy consolidation. Probably community-acquired pneumonia. Continue antibiotics. Infectious disease and pulmonary to evaluate the patient. 3. Sepsis secondary to underlying pneumonia. No evidence of septic shock. Continue antibiotics as per Infectious Disease. 4. Type 2 diabetes mellitus, uncontrolled. Hemoglobin A1c 8.4. Continue the patient on sliding scale insulin along with Lantus insulin, premeal insulin, and basal insulin. Adjust insulin dosing to obtain optimal blood sugar control. 5. Normocytic normochromic anemia. Iron panel showing iron deficiency. Will start the patient on iron supplements. 6. History of prostate cancer, status post treatment. 7. Fluid, electrolytes and nutrition. Carbohydrate controlled, low cholesterol diet. 8. Gastrointestinal prophylaxis. Proton pump inhibitors. 9. DVT prophylaxis. Bilateral sequential compression devices. PLAN: Continue antibiotics as per infectious diseases. Pending pulmonology consult. Follow Cardiology recommendations. Case discussed with Dr. Marcelo. CYNDIE MARCELO MD, AM/JOHN Conf#: [id number] DID#: [id number] MTDD
--- NOTE | 2016-04-30 15:14 | CONS ---
Date/Time of Note Date/Time of Note DATE: 04/30/16 TIME: 15:09 Assessment/Plan Assessment/Plan Additional Assessment/Plan X-ray was reviewed from today as well as CT of the chest which is showing dense consolidation involving the right upper lobe area. Assessment recommendations; 1. Patient admitted for community acquired pneumonia involving the right upper lobe with very dense consolidation. 2. History of diabetes, hypertension. 3. Mild wheezing. Add cefepime 1 g IV every 12. Continue vancomycin and Zithromax. Add DuoNeb every 6 hours. Monitor blood sugars. We will plan on follow-up chest x-ray in 48 hours. Consultation Date/Type/Reason Admit Date/Time Apr 29, 2016 at 12:34 Date of Consultation: Apr 30, 2016 Type of Consultation: Pulmonary Reason for Consultation Pulmonary consultations requested for evaluation of pneumonia. Next History presenting; patient is a pleasant 80-year-old white male who came into the hospital yesterday with a 3 day history of increasing cough, shortness of breath. Patient denies any coughing up of any blood, any sputum production. Any chest pain. He also denies any history of fever or chills. Upon evaluation a chest x-ray was done which is showing dense consolidation involving the right upper lobe.. CT scan of chest also was done which is showing similar findings. The patient is somewhat better since admission. According to him he was fine until 2 days ago when the symptoms started. Denies any chronic shortness of breath. Any chronic cough or wheezing. Next Past medical history; 1. History of hyperlipidemia. 2. History of hypertension. 3. History of diabetes. 4. No history of any coronary artery disease. No history of any surgeries. Medications; were reviewed. Allergies; are none. Next Social history; patient never smoked. No swelling or drug abuse. Family history; patient is a . He has 1 child. No show any illnesses in the family. Occupational history; patient was a duarte. Review of systems; denies any headache, any visual changes. Any sinus symptoms. Denies any dysphagia, odynophagia. Any high fever or chills. Any body aches or myalgias. Any chest pain. Because of cough is very scant sputum production. Denies hemoptysis. Any night sweats or fever. Any weight loss. Denies any melena or hematochezia. Any reflux. Does complain of frequency of urination with urgency. General exam; elderly male, currently in no distress, awake and alert. Psychological: no complaints Social History Smoking Status: Never smoker Exam/Review of Systems Vital Signs Vitals Vital Signs Date Time Temp Pulse Resp B/P Pulse Ox O2 Delivery O2 Flow Rate FiO2 04/30/16 14:48 74 20 96 Nasal Cannula 3.0 04/30/16 08:05 97.9 132/67 Exam HEENT exam is; supple neck, no JVD. No lymphadenopathy. Midline trachea. No thyromegaly. Pharynx is clear. Patient multiple dental caps. Pupils are midsize and reactive to light. Extraocular movements are intact. Chest examination; diminished breath sound bilaterally with mild bilateral expiratory wheezing. S1-S2 audible no murmurs regular rhythm. Abdomen examination; soft, nondistended. No organomegaly. Bowel sounds audible. Extremity examination; no peripheral edema. Pulses 1+ bilaterally. No clubbing. SCREEDMAN examination; cranial nerves are intact. There is no motor deficit. Results Result Diagram: 04/29/16 0933 04/30/16 0640 Results 24 hrs Laboratory Tests Test 04/29/16 20:33 04/30/16 06:40 04/30/16 08:04 Bedside Glucose 290 H 282 H Alanine Aminotransferase (ALT/SGPT) 26 Albumin 3.0 L Albumin/Globulin Ratio 0.83 Alkaline Phosphatase 105 Anion Gap 18 H Aspartate Amino Transf (AST/SGOT) 31 Blood Urea Nitrogen 29 H Calcium Level 8.3 L Carbon Dioxide Level 18 L Chloride Level 107 # Cholesterol Level 83 L Cholesterol/HDL Ratio 4.8 Creatinine 0.93 Direct Bilirubin 0.00 Free Thyroxine Index 2.30 Globulin 3.60 H Glucose Level 265 #H HDL Cholesterol 17 L Hemoglobin A1c 8.4 H Indirect Bilirubin 0.0 Iron Level 17 L LDL Cholesterol, Calculated 44 Magnesium Level 2.1 Percent Iron Saturation 6 L Phosphorus Level 2.6 Potassium Level 3.9 Sodium Level 139 Thyroid Stimulating Hormone (TSH) 1.020 Thyroxine (T4) 4.7 L Total Bilirubin 0.0 L Total Iron Binding Capacity 266 Total Protein 6.6 # Triglycerides Level 108 Triiodothyronine (T3) Uptake 49.0 H Medications Medications Current Medications Clonidine (Catapres) 0.1 mg Q4H PRN PO sbp>160; Start 04/29/16 at 13:00 Gemfibrozil 600 mg 600 mg BID PO Last administered on 04/30/16 09:55; Admin Dose 600 MG; Start 04/29/16 at 21:00 Azithromycin 250 ml @ 250 mls/hr DAILY IVPB Last administered on 04/30/16 09: 00; Admin Dose 250 MLS/HR; Start 04/30/16 at 09:00 Ceftriaxone Sodium (Rocephin) 50 ml @ 100 mls/hr DAILY IVPB Last administered on 04/30/16 09:57; Admin Dose 100 MLS/HR; Start 04/30/16 at 09:00 Amlodipine Besylate (Norvasc) 5 mg BID PO Last administered on 04/30/16 09:56 ; Admin Dose 5 MG; Start 04/29/16 at 21:00 Miscellaneous Information 1 ea NOTE XX ; Start 04/29/16 at 13:30 Glucose (Glutose) 15 gm Q15M PRN PO DECREASED GLUCOSE; Start 04/29/16 at 13:30 Glucose (Glutose) 22.5 gm Q15M PRN PO DECREASED GLUCOSE; Start 04/29/16 at 13: 30 Dextrose (D50w Syringe) 25 ml Q15M PRN IV DECREASED GLUCOSE; Start 04/29/16 at 13:30 Dextrose (D50w Syringe) 50 ml Q15M PRN IV DECREASED GLUCOSE; Start 04/29/16 at 13:30 Glucagon (Glucagen) 1 mg Q15M PRN IM DECREASED GLUCOSE; Start 04/29/16 at 13:30 Glucose (Glutose) 15 gm Q15M PRN BUCCAL DECREASED GLUCOSE; Start 04/29/16 at 13 :30 Ondansetron HCl (Zofran Inj) 4 mg Q6H PRN IV NAUSEA AND/OR VOMITING; Start at 13:30 Acetaminophen (Tylenol Tab) 650 mg Q6H PRN PO PAIN LEVEL 1-3 OR FEVER; Start at 13:30 Acetaminophen (Tylenol Supp) 650 mg Q6H PRN [place] PAIN LEVEL 1-3 OR FEVER; Start 04/29/16 at 13:30 Acetaminophen/ Hydrocodone Bitart ([place] (5/325)) 1 tab Q6H PRN PO MODERATE PAIN LEVEL 4-6; Start 04/29/16 at 13:30 Acetaminophen/ Hydrocodone Bitart ([place] (5/325)) 2 tab Q6H PRN PO SEVERE PAIN LEVEL 7-10; Start 04/29/16 at 13:30 Morphine Sulfate (morphine) 2 mg Q4H PRN IV SEVERE PAIN LEVEL 7-10; Start 04/29 at 13:30 Docusate Sodium (Colace) 100 mg Q12H PRN PO CONSTIPATION; Start 04/29/16 at 13: 30 Magnesium Hydroxide (Milk Of Mag) 30 ml DAILY PRN PO CONSTIPATION; Start at 13:30 Bisacodyl (Dulcolax Supp) 10 mg DAILY PRN [place] CONSTIPATION; Start 04/29/16 at 13 :30 Pantoprazole (Protonix Iv) 40 mg DAILY@06 IV Last administered on 04/30/16 09: 50; Admin Dose 40 MG; Start 04/30/16 at 06:00 Furosemide (Lasix) 20 mg DAILY IV Last administered on 04/30/16 09:57; Admin Dose 20 MG; Start 04/30/16 at 09:00 Carvedilol 12.5 mg 12.5 mg BID PO Last administered on 04/30/16 09:56; Admin Dose 12.5 MG; Start 04/29/16 at 21:00 Ferric Sodium Gluconate Complex/ Sodium Chloride (Ferrlecit/NS) 110 ml @ 100 mls/hr Q24H IVPB ; Start 04/30/16 at 14:30; Stop 05/02/16 at 15:35 Insulin Glargine 15 unit 15 unit DAILY@08 SC ; Start 05/01/16 at 08:00 Vancomycin HCl/ Sodium Chloride (Vancocin/NS) 250 ml @ 83.333 mls/ hr Q24H IVPB ; Start 05/01/16 at 12:00 ROSA BOOKER 20, 2017 15:13
--- NOTE | 2016-04-30 18:32 | RADRPT ---
Echocardiogram Report Patient Name: FARAZ ROJAS Gender: Male Date: 1935 Study Date: 30-Apr-2016 Transportation Associate: [employer] [facility] Location: [id number] Ref. Physician: SERA BARROS Quality: Good Procedures: Transthoracic echocardiogram with complete 2D, M-Mode, and doppler examination. Indications: Shortness of breath. 2D/M Mode Doppler Measurement Value Normal Ranges Measurement Value Normal Ranges LVIDd 2D 5.3 3.5 - 5.6 cm AV Peak Ketan 1.7 m/sec LVIDs 2D 2.7 2.1 - 4.1 cm AV Peak PG 11.0 mmHg FS 2D 49.0 % AI Peak PG 56.0 mmHg LVPWd 2D 1.0 0.6 - 1.1 cm AI Peak Ketan 3.7 m/sec IVSd 2D 1.2 0.6 - 1.1 cm AI PHT 446.0 msec IVS/LVPW 2D 1.2 LVOT Peak Ketan 1.0 m/sec AoR Diam 2D 3.1 2.0 - 3.7 cm LVOT Peak PG 4.0 mmHg LA/Ao 2D 1 0 - 1 MV E Peak Ketan 0.8 m/sec EDV 2D 151.0 cm3 MV A Peak Ketan 1.0 m/sec ESV 2D 20.1 cm3 MV E/A 0.8 LA Dimen 2D 3.7 2.3 - 4.0 cm MV Decel Time 215 msec MV E/A 0.8 TR Peak Ketan 2.5 m/sec TR Peak PG 24.0 mmHg RVSP 32.0 mmHg Findings Left Ventricle: Normal left ventricular systolic function. Normal left ventricular cavity size. Mild concentric left ventricular hypertrophy. Ejection fraction is visually estimated at 60 %. Tissue Doppler/Mitral Doppler indices are consistent with impaired relaxation (Stage I diastolic dysfunction). Right Ventricle: Normal right ventricular size. Normal right ventricular systolic function. Left Atrium: The left atrium is normal in size. Right Atrium: The right atrium is normal in size. Mitral Valve: Mitral valve leaflets appear mildly thickened. Mild mitral annular calcification. Trace mitral regurgitation. Aortic Valve: No hemodynamically significant aortic stenosis by doppler. Aortic cusps appear mildly calcified. Mild aortic valve regurgitation. Tricuspid Valve: Normal appearance of the tricuspid valve. Estimated peak PA systolic pressure 32 mmHg. There is mild tricuspid regurgitation. Pulmonic Valve: Normal pulmonic valve appearance. Pericardium: Normal pericardium with no significant pericardial effusion. Aorta: Normal aortic root. IVC: Dilated IVC with respiratory collapse consistent with elevated right atrial pressure. Conclusions 1.Normal left ventricular systolic function. Normal left ventricular cavity size. Mild concentric left ventricular hypertrophy. Ejection fraction is visually estimated at 60 %. Tissue Doppler/Mitral Doppler indices are consistent with impaired relaxation (Stage I diastolic dysfunction). 2.Mitral valve leaflets appear mildly thickened. Mild mitral annular calcification. Trace mitral regurgitation. 3.No hemodynamically significant aortic stenosis by doppler. Aortic cusps appear mildly calcified. Mild aortic valve regurgitation. 4.Normal appearance of the tricuspid valve. Estimated peak PA systolic pressure 32 mmHg. There is mild tricuspid regurgitation. Electronically Signed By: Faraz Wagner 30-Apr-2016 18:31:51 -0700 Patient Name: FARAZ ROJAS Study Date: 30-Apr-2016 [id number]
--- NOTE | 2016-04-30 20:55 | CONS ---
DATE OF ADMISSION: 04/29/2016 DATE OF CONSULTATION: 04/30/2016 ELECTROGRAM CARDIAC STRESS TEST REASON FOR STRESS TESTING: Abnormal electrocardiogram, assess for ischemia. Baseline vital signs electrocardiogram: Pulse of 73, blood pressure 132/71. Electrocardiogram revea ls normal sinus rhythm, rate of 73 with left axis deviation, right bundle branch block, left anterio r fascicular block, secondary repolarization abnormalities. PROCEDURE: The patient underwent standard Lexiscan infusion protocol over 10 seconds followed by ra diolabeled tracer. The patient's test was stopped due to completion of protocol. Maximal achieved blood pressure during the test 120/61. Maximum heart rate during the test 83. ECG FINDINGS: The patient did not develop any new Lexiscan-induced ST or T-wave changes from baseli ne abnormalities. No documented PVCs. SYMPTOMS: The patient had no complaints of chest pain or shortness of breath during stress testing. IMPRESSION: 1. No Lexiscan-induced ST or T-wave changes from baseline abnormalities or diagnostic cardiac ische yakov. 2. No complaints of chest pain or shortness of breath during stress testing. 3. No documented premature ventricular contractions during stress testing. 4. Report of nuclear images to follow in separate dictation. Dictated By: FARAZ ROONEY/JOHN Conf#: [id number] DID#: [id number] CC: ARABELLA RODRIGUEZ MD;*EndCC*
--- NOTE | 2016-04-30 21:05 | PN ---
DATE: SUBJECTIVE: No acute changes overnight. The patient is alert, denies pain, looks comfortable, no f jeremy. VITAL SIGNS: Temperature 97.9, pulse 70, respirations 20, blood pressure 130/67, saturation 96% on 2 liters. WBC: 23.8 yesterday with platelets 282, neutrophils 88.6. BUN today 29, creatinine 0.93. MICROBIOLOGY: Blood culture growing gram-positive cocci in pairs and chains since yesterday. ANTIMICROBIALS: The patient is on: 1. Vancomycin. 2. Zithromax. 3. Rocephin. ALLERGIES: NONE. PHYSICAL EXAMINATION: GENERAL: This is well-developed, elderly white man who is alert, in no distress. HEENT: Head atraumatic, normocephalic. Sclerae anicteric. Buccal mucosa pink. NECK: Supple. CHEST: Rise symmetrical. Breath sounds diminished to bases. HEART: S1, S2. ABDOMEN: Soft, bowel tones present. EXTREMITIES: Without cyanosis. ASSESSMENT: 1. Sepsis with fevers and leukocytosis present on admission. 2. Gram-positive cocci bacteremia, unclear etiology. 3. Pneumonia. 4. Arrhythmia. 5. Poorly controlled diabetes. PLAN: We are going to continue the patient on current antimicrobials. We will order 2D echo to rul e out vegetations. Repeat blood cultures, follow labs and chest x-ray in a.m. Follow recommendatio ns of consultants. Dictated By: ANNA MISHRA ORGAN ASSEMBLER for RUDY FERNANDES/JOHN Conf#: [id number] DID#: [id number]
[2016-05-01] VITALS (11 sets, daily range): BP systolic 107–158; BP diastolic 51–75; PULSE 71–78; RESP 15–20
[2016-05-01] MEDS: GEMFIBROZIL 600 MG TAB PO SCH ×3 (01:51→20:38)
[2016-05-01] MEDS: AMLODIPINE 5 MG TAB PO SCH ×3 (01:52→20:38)
[2016-05-01] MEDS: CEFEPIME 1GM/50 ML (PMX) 50 ML IVPB SCH ×3 (01:53→20:37)
[2016-05-01] MEDS: SOD FERRIC GLUC COMPLX 125 MG in SOD CHLORIDE 0.9% 100 ML IVPB SCH ×2 (01:58→14:47)
[2016-05-01] MEDS ORDERED: INSULIN ASPART [NOVOLOG] 3 ML PEN SC ONE (02:30)
[2016-05-01 07:44] LABS: ADD SCAN DIFF NO
[2016-05-01 07:53] LABS: BASOPHILS % 0.1 % (0.0-2.0); EOSINOPHILS % 0.2 % (0.0-7.0); LYMPHOCYTES % 6.8 % (15.0-51.0); MEAN CORPUSCULAR HGB CONC 32.1 g/dl (32.0-37.0); MEAN CORPUSCULAR VOLUME 90.3 fl (82.0-101.0); MEAN PLATELET VOLUME 11.6 fl (7.4-10.4); MONOCYTE # 0.9 10^3/ul (0.3-0.9); MONOCYTES % 6.3 % (0.0-11.0); NEUTROPHIL # 12.3 10^3/ul (1.6-7.5); NEUTROPHILS % 85.4 % (39.0-77.0); PLATELET COUNT 303 10^3/UL (140-415); RED CELL DISTRIBUTION WIDTH 13.6 % (11.5-14.5); WHITE BLOOD COUNT 14.4 10^3/ul (4.8-10.8)
[2016-05-01] MEDS ORDERED: INSULIN GLARGINE [LANtus] 3 ML PEN SC SCH (08:00)
[2016-05-01 08:08] LABS: MAGNESIUM 2.1 mg/dl (1.7-2.5); PHOSPHORUS 2.3 mg/dl (2.5-4.9)
[2016-05-01] MEDS: AZITHROMYCIN 500MG/NS (PMX) 250 ML IVPB SCH (08:11)
[2016-05-01] MEDS: FUROSEMIDE 20 MG INJ IV SCH (08:12)
[2016-05-01] MEDS: INSULIN ASPART [NOVOLOG] 3 ML PEN SC SCH ×7 (08:13→20:42)
[2016-05-01 08:18] LABS: POTASSIUM 3.3 mmol/L (3.5-5.1)
[2016-05-01 08:21] LABS: CREATININE 0.84 mg/dl (0.61-1.24)
[2016-05-01 08:22] LABS: CALCIUM 8.6 mg/dl (8.4-10.2)
[2016-05-01] MEDS: ALBUTEROL/IPRATROPIUM (NEB) 3 ML AMP HHN SCH ×4 (09:07→20:13)
--- NOTE | 2016-05-01 09:36 | CONS ---
Date/Time of Note Date/Time of Note DATE: 05/01/16 TIME: 09:33 Assessment/Plan Assessment/Plan Additional Assessment/Plan 1. SVT - less likely a. fib - now in sinus- ASA 325 mg po qday for now. Patient on a beta kevin as well. 2. Recurrent pleural effusion. The patient's pleural effusion might require thoracentesis. Continue to monitor 3. Abnormal Stress test - EF 60, small inferior defect - will defer to Dr. Wagner if intervention is warranted vs. med rx. 3. Hypertension. Blood pressure modestly well controlled. Continue medical therapy. 4. Pneumonia. Continue patient antibiotics as needed. 5. Diabetes. Continue diabetic optimization . We will keep the patient euvolemic. 6. CHF - diast HF, acute on chronic - con't gentle diuresis - consider D/c adam. Consultation Date/Type/Reason Admit Date/Time Apr 29, 2016 at 12:34 Initial Consult Date 04/30/16 Type of Consultation: Pulmonary Referring Provider: ARABELLA RODRIGUEZ 24 HR Interval Summary Free Text/Dictation Feels better - no new sVT - Abnormal Stress test - EF 60, small inferior defect - will defer to Dr. Wagner if intervention is warranted vs. med rx. ROS: No fever, no chills, no nausea, no vomiting, no diarrhea/constipation No recent weight changes No chest pain, no PND, no orthopnea No dizziness, blurred vision No thirst, no heat or cold intolerance Exam/Review of Systems Vital Signs Vitals Vital Signs Date Time Temp Pulse Resp B/P Pulse Ox O2 Delivery O2 Flow Rate FiO2 05/01/16 07:22 98.7 79 20 158/75 96 05/01/16 02:22 3.0 04/30/16 20:39 Nasal Cannula Intake and Output 04/30/16 04/30/16 05/01/16 15:00 23:00 07:00 Intake Total 300 ml 1120 ml Output Total 1950 ml 200 ml Balance 300 ml -830 ml -200 ml Exam General: WN/WD/NAD, AOx 3 HEENT: Unicetric/atraumatic/EOMI (follow commands) NECK: JVD elevated, no thyromegaly Lymph: no lymphadenopathy HEART: regular with no S3, II/ systolic murmur at apex LUNGS: Coarse sounds ABD: soft, NT, ND, +BS : Intact, [place] Neuro: non focal SKIN: chronic changes EXT: trace edema Results Result Diagram: 05/01/16 0643 05/01/16 0645 Results 24 hrs Laboratory Tests Test 04/30/16 18:03 05/01/16 01:56 05/01/16 06:43 05/01/16 06:45 Bedside Glucose 418 *H 543 *H Basophils # 0.0 Basophils % 0.1 Eosinophils # 0.0 Eosinophils % 0.2 Hematocrit 28.0 L Hemoglobin 9.0 L Lymphocytes # 1.0 Lymphocytes % 6.8 L Magnesium Level 2.1 Mean Corpuscular Hemoglobin 29.0 Mean Corpuscular Hemoglobin Concent 32.1 Mean Corpuscular Volume 90.3 Mean Platelet Volume 11.6 H Monocytes # 0.9 Monocytes % 6.3 Neutrophils # 12.3 H Neutrophils % 85.4 H Nucleated Red Blood Cells # 0.0 Nucleated Red Blood Cells % 0.0 Phosphorus Level 2.3 L Platelet Count 303 Red Blood Count 3.10 L Red Cell Distribution Width 13.6 White Blood Count 14.4 #H Anion Gap 17 H Blood Urea Nitrogen 30 H Calcium Level 8.6 Carbon Dioxide Level 20 L Chloride Level 110 Creatinine 0.84 Glucose Level 190 Potassium Level 3.3 L Sodium Level 144 Test 05/01/16 07:52 Bedside Glucose 234 H Medications Medications Current Medications Clonidine (Catapres) 0.1 mg Q4H PRN PO sbp>160; Start 04/29/16 at 13:00 Gemfibrozil 600 mg 600 mg BID PO Last administered on 05/01/16 08:10; Admin Dose 600 MG; Start 04/29/16 at 21:00 Azithromycin (Zithromax 500mg/ NS (Pmx)) 250 ml @ 250 mls/hr DAILY IVPB Last administered on 05/01/16 08:11; Admin Dose 250 MLS/HR; Start 04/30/16 at 09:00 Amlodipine Besylate (Norvasc) 5 mg BID PO Last administered on 05/01/16 08:10 ; Admin Dose 5 MG; Start 04/29/16 at 21:00 Miscellaneous Information 1 ea NOTE XX ; Start 04/29/16 at 13:30 Glucose (Glutose) 15 gm Q15M PRN PO DECREASED GLUCOSE; Start 04/29/16 at 13:30 Glucose (Glutose) 22.5 gm Q15M PRN PO DECREASED GLUCOSE; Start 04/29/16 at 13: 30 Dextrose (D50w Syringe) 25 ml Q15M PRN IV DECREASED GLUCOSE; Start 04/29/16 at 13:30 Dextrose (D50w Syringe) 50 ml Q15M PRN IV DECREASED GLUCOSE; Start 04/29/16 at 13:30 Glucagon (Glucagen) 1 mg Q15M PRN IM DECREASED GLUCOSE; Start 04/29/16 at 13:30 Glucose (Glutose) 15 gm Q15M PRN BUCCAL DECREASED GLUCOSE; Start 04/29/16 at 13 :30 Ondansetron HCl (Zofran Inj) 4 mg Q6H PRN IV NAUSEA AND/OR VOMITING; Start at 13:30 Acetaminophen (Tylenol Tab) 650 mg Q6H PRN PO PAIN LEVEL 1-3 OR FEVER; Start at 13:30 Acetaminophen (Tylenol Supp) [address] PAIN LEVEL 1-3 OR FEVER; Start 04/29/16 at 13:30 Acetaminophen/ Hydrocodone Bitart ([place] (5/325)) 1 tab Q6H PRN PO MODERATE PAIN LEVEL 4-6; Start 04/29/16 at 13:30 Acetaminophen/ Hydrocodone Bitart ([place] (5/325)) 2 tab Q6H PRN PO SEVERE PAIN LEVEL 7-10; Start 04/29/16 at 13:30 Morphine Sulfate (morphine) 2 mg Q4H PRN IV SEVERE PAIN LEVEL 7-10; Start 04/29 at 13:30 Docusate Sodium (Colace) 100 mg Q12H PRN PO CONSTIPATION; Start 04/29/16 at 13: 30 Magnesium Hydroxide (Milk Of Mag) 30 ml DAILY PRN PO CONSTIPATION; Start at 13:30 Bisacodyl (Dulcolax Supp) [address] CONSTIPATION; Start 04/29/16 at 13 :30 Pantoprazole (Protonix Iv) 40 mg DAILY@06 IV Last administered on 04/30/16 09: 50; Admin Dose 40 MG; Start 04/30/16 at 06:00 Furosemide (Lasix) 20 mg DAILY IV Last administered on 05/01/16 08:12; Admin Dose 20 MG; Start 04/30/16 at 09:00 Carvedilol 12.5 mg 12.5 mg BID PO Last administered on 05/01/16 08:11; Admin Dose 12.5 MG; Start 04/29/16 at 21:00 Ferric Sodium Gluconate Complex/ Sodium Chloride (Ferrlecit/NS) 110 ml @ 100 mls/hr Q24H IVPB Last administered on 05/01/16 01:58; Admin Dose 100 MLS/HR; Start 04/30/16 at 14:30; Stop 05/02/16 at 15:35 Insulin Glargine 15 unit 15 unit DAILY@08 SC Last administered on 05/01/16 08: 12; Admin Dose 15 UNIT; Start 05/01/16 at 08:00 Vancomycin HCl 1.5 gm/Sodium Chloride 250 ml @ 83.333 mls/ hr Q24H IVPB ; Start 05/01/16 at 12:00 Cefepime HCl (Maxipime 1gm/50 ml (Pmx)) 50 ml @ 100 mls/hr Q12 IVPB Last administered on 05/01/16 01:53; Admin Dose 100 MLS/HR; Start 04/30/16 at 21:00 SWEETIE MCNEILL MD May 01, 2016 09:36
--- NOTE | 2016-05-01 11:18 | PN ---
DATE: 05/01/2016 SUBJECTIVE: Mr. Martin is stable this morning, says he is less short of breath than yesterday. PHYSICAL EXAMINATION: VITAL SIGNS: Temperature 98, pulse 76, blood pressure 158/75, O2 saturation 96% on 3 L nasal cannul a. NECK: Supple. No JVD or lymphadenopathy. CARDIAC: S1, S2. No added sounds or murmurs. CHEST: Diminished air entry bilaterally. ABDOMEN: Soft, nontender. No guarding or rebound. EXTREMITIES: No cyanosis, clubbing, edema. NEUROLOGIC: Generalized weakness, but no focal deficits. LABORATORY DATA: White count 15.4, hemoglobin 9.1, platelets of 303. BUN 30, creatinine 0.84. INR 1.3. IMPRESSION AND PLAN: 1. Community-acquired pneumonia. 2. Significant hypoxemia secondary to above. 3. Gram-positive cocci bacteremia. PLAN: 1. Continue antibiotics. 2. Continue pulmonary toilet. 3. Continue DVT and GI prophylaxis. Dictated By: KAYY MALONEY/JOHN Conf#: [id number] DID#: [id number]
[2016-05-01] MEDS ORDERED: VANCOMYCIN 1.5 GM in SOD CHLORIDE 0.9% 250 ML IVPB SCH (12:00)
[2016-05-01] MEDS: PANTOPRAZOLE 40 MG INJ IV SCH (12:19)
--- NOTE | 2016-05-01 14:19 | CONS ---
Date/Time of Note Date/Time of Note DATE: 05/01/16 TIME: 14:16 Assessment/Plan Assessment/Plan Chief Complaint/Hosp Course SUBJECTIVE: No acute changes overnight. The patient is alert, denies pain, looks comfortable, no fevers. MICROBIOLOGY: Blood culture growing Strep ANTIMICROBIALS: The patient is on: 1. Vancomycin. 2. Zithromax. 3. Rocephin. ALLERGIES: NONE. PHYSICAL EXAMINATION: GENERAL: This is well-developed, elderly white man who is alert, in no distress. HEENT: Head atraumatic, normocephalic. Sclerae anicteric. Buccal mucosa pink. NECK: Supple. CHEST: Rise symmetrical. Breath sounds diminished to bases. HEART: S1, S2. ABDOMEN: Soft, bowel tones present. EXTREMITIES: Without cyanosis. ASSESSMENT: 1. Sepsis with fevers and leukocytosis present on admission. 2. Strep bacteremia==> poss pulmonary source, r/o SBE 3. Pneumonia==> likely strep. 4. Arrhythmia. 5. Poorly controlled diabetes. PLAN: Clinically stable, pending ECHO, pending repeat bld cx, dc Vanco, continue abx, f/u pulmonary rec-s DW staff Problems: Consultation Date/Type/Reason Admit Date/Time Apr 29, 2016 at 12:34 Initial Consult Date 04/30/16 Type of Consultation: ID Referring Provider: ARABELLA RODRIGUEZ Exam/Review of Systems Vital Signs Vitals Vital Signs Date Time Temp Pulse Resp B/P Pulse Ox O2 Delivery O2 Flow Rate FiO2 05/01/16 12:00 74 05/01/16 11:54 98.0 20 109/53 93 05/01/16 09:08 Nasal Cannula 3.0 Intake and Output 04/30/16 04/30/16 05/01/16 15:00 23:00 07:00 Intake Total 300 ml 1120 ml Output Total 1950 ml 200 ml Balance 300 ml -830 ml -200 ml Results Result Diagram: 05/01/16 0643 05/01/16 0645 Results 24 hrs Laboratory Tests Test 04/30/16 18:03 05/01/16 01:56 05/01/16 06:43 05/01/16 06:45 Bedside Glucose 418 *H 543 *H Basophils # 0.0 Basophils % 0.1 Eosinophils # 0.0 Eosinophils % 0.2 Hematocrit 28.0 L Hemoglobin 9.0 L Lymphocytes # 1.0 Lymphocytes % 6.8 L Magnesium Level 2.1 Mean Corpuscular Hemoglobin 29.0 Mean Corpuscular Hemoglobin Concent 32.1 Mean Corpuscular Volume 90.3 Mean Platelet Volume 11.6 H Monocytes # 0.9 Monocytes % 6.3 Neutrophils # 12.3 H Neutrophils % 85.4 H Nucleated Red Blood Cells # 0.0 Nucleated Red Blood Cells % 0.0 Phosphorus Level 2.3 L Platelet Count 303 Red Blood Count 3.10 L Red Cell Distribution Width 13.6 White Blood Count 14.4 #H Anion Gap 17 H Blood Urea Nitrogen 30 H Calcium Level 8.6 Carbon Dioxide Level 20 L Chloride Level 110 Creatinine 0.84 Glucose Level 190 Potassium Level 3.3 L Sodium Level 144 Test 05/01/16 07:52 05/01/16 12:07 Bedside Glucose 234 H 334 H Medications Medications Current Medications Clonidine (Catapres) 0.1 mg Q4H PRN PO sbp>160; Start 04/29/16 at 13:00 Gemfibrozil 600 mg 600 mg BID PO Last administered on 05/01/16 08:10; Admin Dose 600 MG; Start 04/29/16 at 21:00 Azithromycin (Zithromax 500mg/ NS (Pmx)) 250 ml @ 250 mls/hr DAILY IVPB Last administered on 05/01/16 08:11; Admin Dose 250 MLS/HR; Start 04/30/16 at 09:00 Amlodipine Besylate (Norvasc) 5 mg BID PO Last administered on 05/01/16 08:10 ; Admin Dose 5 MG; Start 04/29/16 at 21:00 Miscellaneous Information 1 ea NOTE XX ; Start 04/29/16 at 13:30 Glucose (Glutose) 15 gm Q15M PRN PO DECREASED GLUCOSE; Start 04/29/16 at 13:30 Glucose (Glutose) 22.5 gm Q15M PRN PO DECREASED GLUCOSE; Start 04/29/16 at 13: 30 Dextrose (D50w Syringe) 25 ml Q15M PRN IV DECREASED GLUCOSE; Start 04/29/16 at 13:30 Dextrose (D50w Syringe) 50 ml Q15M PRN IV DECREASED GLUCOSE; Start 04/29/16 at 13:30 Glucagon (Glucagen) 1 mg Q15M PRN IM DECREASED GLUCOSE; Start 04/29/16 at 13:30 Glucose (Glutose) 15 gm Q15M PRN BUCCAL DECREASED GLUCOSE; Start 04/29/16 at 13 :30 Ondansetron HCl (Zofran Inj) 4 mg Q6H PRN IV NAUSEA AND/OR VOMITING; Start at 13:30 Acetaminophen (Tylenol Tab) 650 mg Q6H PRN PO PAIN LEVEL 1-3 OR FEVER; Start at 13:30 Acetaminophen (Tylenol Supp) 650 mg Q6H PRN [place] PAIN LEVEL 1-3 OR FEVER; Start 04/29/16 at 13:30 Acetaminophen/ Hydrocodone Bitart ([place] (5/325)) 1 tab Q6H PRN PO MODERATE PAIN LEVEL 4-6; Start 04/29/16 at 13:30 Acetaminophen/ Hydrocodone Bitart ([place] (5/325)) 2 tab Q6H PRN PO SEVERE PAIN LEVEL 7-10; Start 04/29/16 at 13:30 Morphine Sulfate (morphine) 2 mg Q4H PRN IV SEVERE PAIN LEVEL 7-10; Start 04/29 at 13:30 Docusate Sodium (Colace) 100 mg Q12H PRN PO CONSTIPATION; Start 04/29/16 at 13: 30 Magnesium Hydroxide (Milk Of Mag) 30 ml DAILY PRN PO CONSTIPATION; Start at 13:30 Bisacodyl (Dulcolax Supp) 10 mg DAILY PRN [place] CONSTIPATION; Start 04/29/16 at 13 :30 Pantoprazole (Protonix Iv) 40 mg DAILY@06 IV Last administered on 05/01/16 12: 19; Admin Dose 40 MG; Start 04/30/16 at 06:00 Furosemide (Lasix) 20 mg DAILY IV Last administered on 05/01/16 08:12; Admin Dose 20 MG; Start 04/30/16 at 09:00 Carvedilol 12.5 mg 12.5 mg BID PO Last administered on 05/01/16 08:11; Admin Dose 12.5 MG; Start 04/29/16 at 21:00 Ferric Sodium Gluconate Complex/ Sodium Chloride (Ferrlecit/NS) 110 ml @ 100 mls/hr Q24H IVPB Last administered on 05/01/16 01:58; Admin Dose 100 MLS/HR; Start 04/30/16 at 14:30; Stop 05/02/16 at 15:35 Insulin Glargine 15 unit 15 unit DAILY@08 SC Last administered on 05/01/16 08: 12; Admin Dose 15 UNIT; Start 05/01/16 at 08:00 Vancomycin HCl 1.5 gm/Sodium Chloride 250 ml @ 83.333 mls/ hr Q24H IVPB ; Start 05/01/16 at 12:00 Cefepime HCl (Maxipime 1gm/50 ml (Pmx)) 50 ml @ 100 mls/hr Q12 IVPB Last administered on 05/01/16 12:09; Admin Dose 100 MLS/HR; Start 04/30/16 at 21:00 ANNA MISHRA NP May 01, 2016 14:19
--- NOTE | 2016-05-01 14:58 | PN ---
Date/Time of Note Date/Time of Note DATE: 05/01/16 TIME: 14:57 Assessment/Plan VTE Prophylaxis VTE Prophylaxis Intervention: SCD's Lines/Catheters IV [facility] [place] [facility] Urinary Cath still in place: Yes Reason Cath still needed: other (indicate) (To be discontinued.) Assessment/Plan Chief Complaint/Hosp Course 1. Paroxysmal atrial fibrillation. Currently converted to sinus rhythm. The patient being followed by Cardiology. The patient was ruled out for any underlying acute coronary syndrome. Status post cardiac stress test. 2. Right upper lobe patchy consolidation. Probably community-acquired pneumonia. Continue antibiotics. Infectious disease and pulmonary following. 3. Sepsis secondary to underlying pneumonia and gram-positive bacteremia. No evidence of septic shock. Continue antibiotics as per Infectious Disease. 4. Type 2 diabetes mellitus, uncontrolled. Hemoglobin A1c 8.4. Continue the patient on sliding scale insulin along with Lantus insulin, premeal insulin, and basal insulin. Adjust insulin dosing to obtain optimal blood sugar control. 5. Normocytic normochromic anemia. Iron panel showing iron deficiency. Continue iron supplements. 6. History of prostate cancer, status post treatment. 7. Fluid, electrolytes and nutrition. Carbohydrate controlled, low cholesterol diet. 8. Gastrointestinal prophylaxis. Proton pump inhibitors. 9. DVT prophylaxis. Bilateral sequential compression devices. PLAN: Continue antibiotics as per infectious diseases. Follow Cardiology an Pulmonary recommendations. Case discussed with . Problems: Subjective 24 Hr Interval Summary Free Text/Dictation Denies any chest pain. Complains of dyspnea. Exam/Review of Systems Vital Signs Vitals Vital Signs Date Time Temp Pulse Resp B/P Pulse Ox O2 Delivery O2 Flow Rate FiO2 05/01/16 12:00 74 05/01/16 11:54 98.0 20 109/53 93 05/01/16 09:08 Nasal Cannula 3.0 Intake and Output 04/30/16 04/30/16 05/01/16 15:00 23:00 07:00 Intake Total 300 ml 1120 ml Output Total 1950 ml 200 ml Balance 300 ml -830 ml -200 ml Exam GENERAL: This is an obese male patient lying in bed in no apparent distress. HEENT: Head normocephalic and atraumatic. Eyes: Anicteric sclerae. Conjunctivae clear. ENT: Nasal septum is midline. Oral mucosa is dry. NECK: Supple. No JVD noticed. RESPIRATORY: Bilaterally diminished breath sounds. Coarse breath sounds heard on the right side. No use of accessory muscles of respiration. CARDIAC: Regular rate and rhythm with a soft systolic murmur. ABDOMEN: Soft, nontender and nondistended. Bowel sounds positive in all 4 quadrants. GENITOURINARY: Deferred. EXTREMITIES: No cyanosis, no clubbing, no edema. Peripheral pulses are palpable. NEUROLOGIC: The patient is awake, alert and oriented. Cranial nerves are grossly intact. Results Result Diagram: 05/01/16 0643 05/01/16 0645 Results 24 hrs Laboratory Tests Test 04/30/16 18:03 05/01/16 01:56 05/01/16 06:43 05/01/16 06:45 Bedside Glucose 418 *H 543 *H Basophils # 0.0 Basophils % 0.1 Eosinophils # 0.0 Eosinophils % 0.2 Hematocrit 28.0 L Hemoglobin 9.0 L Lymphocytes # 1.0 Lymphocytes % 6.8 L Magnesium Level 2.1 Mean Corpuscular Hemoglobin 29.0 Mean Corpuscular Hemoglobin Concent 32.1 Mean Corpuscular Volume 90.3 Mean Platelet Volume 11.6 H Monocytes # 0.9 Monocytes % 6.3 Neutrophils # 12.3 H Neutrophils % 85.4 H Nucleated Red Blood Cells # 0.0 Nucleated Red Blood Cells % 0.0 Phosphorus Level 2.3 L Platelet Count 303 Red Blood Count 3.10 L Red Cell Distribution Width 13.6 White Blood Count 14.4 #H Anion Gap 17 H Blood Urea Nitrogen 30 H Calcium Level 8.6 Carbon Dioxide Level 20 L Chloride Level 110 Creatinine 0.84 Glucose Level 190 Potassium Level 3.3 L Sodium Level 144 Test 05/01/16 07:52 05/01/16 12:07 Bedside Glucose 234 H 334 H Medications Medications Current Medications Clonidine (Catapres) 0.1 mg Q4H PRN PO sbp>160; Start 04/29/16 at 13:00 Gemfibrozil (Lopid) 600 mg BID PO Last administered on 05/01/16 08:10; Admin Dose 600 MG; Start 04/29/16 at 21:00 Amlodipine Besylate (Norvasc) 5 mg BID PO Last administered on 05/01/16 08:10 ; Admin Dose 5 MG; Start 04/29/16 at 21:00 Miscellaneous Information 1 ea NOTE XX ; Start 04/29/16 at 13:30 Glucose (Glutose) 15 gm Q15M PRN PO DECREASED GLUCOSE; Start 04/29/16 at 13:30 Glucose (Glutose) 22.5 gm Q15M PRN PO DECREASED GLUCOSE; Start 04/29/16 at 13: 30 Dextrose (D50w Syringe) 25 ml Q15M PRN IV DECREASED GLUCOSE; Start 04/29/16 at 13:30 Dextrose (D50w Syringe) 50 ml Q15M PRN IV DECREASED GLUCOSE; Start 04/29/16 at 13:30 Glucagon (Glucagen) 1 mg Q15M PRN IM DECREASED GLUCOSE; Start 04/29/16 at 13:30 Glucose (Glutose) 15 gm Q15M PRN BUCCAL DECREASED GLUCOSE; Start 04/29/16 at 13 :30 Ondansetron HCl (Zofran Inj) 4 mg Q6H PRN IV NAUSEA AND/OR VOMITING; Start at 13:30 Acetaminophen (Tylenol Tab) 650 mg Q6H PRN PO PAIN LEVEL 1-3 OR FEVER; Start at 13:30 Acetaminophen (Tylenol Supp) 650 mg Q6H PRN [place] PAIN LEVEL 1-3 OR FEVER; Start 04/29/16 at 13:30 Acetaminophen/ Hydrocodone Bitart ([place] (5/325)) 1 tab Q6H PRN PO MODERATE PAIN LEVEL 4-6; Start 04/29/16 at 13:30 Acetaminophen/ Hydrocodone Bitart ([place] (5/325)) 2 tab Q6H PRN PO SEVERE PAIN LEVEL 7-10; Start 04/29/16 at 13:30 Morphine Sulfate (morphine) 2 mg Q4H PRN IV SEVERE PAIN LEVEL 7-10; Start 04/29 at 13:30 Docusate Sodium (Colace) 100 mg Q12H PRN PO CONSTIPATION; Start 04/29/16 at 13: 30 Magnesium Hydroxide (Milk Of Mag) 30 ml DAILY PRN PO CONSTIPATION; Start at 13:30 Bisacodyl (Dulcolax Supp) 10 mg DAILY PRN [place] CONSTIPATION; Start 04/29/16 at 13 :30 Pantoprazole (Protonix Iv) 40 mg DAILY@06 IV Last administered on 05/01/16t 12: 19; Admin Dose 40 MG; Start 04/30/16 at 06:00 Furosemide (Lasix) 20 mg DAILY IV Last administered on 05/01/16 08:12; Admin Dose 20 MG; Start 04/30/16 at 09:00 Carvedilol 12.5 mg 12.5 mg BID PO Last administered on 05/01/16 08:11; Admin Dose 12.5 MG; Start 04/29/16 at 21:00 Ferric Sodium Gluconate Complex/ Sodium Chloride (Ferrlecit/NS) 110 ml @ 100 mls/hr Q24H IVPB Last administered on 05/01/16 14:47; Admin Dose 100 MLS/HR; Start 04/30/16 at 14:30; Stop 05/02/16 at 15:35 Insulin Glargine 15 unit 15 unit DAILY@08 SC Last administered on 05/01/16 08: 12; Admin Dose 15 UNIT; Start 05/01/16 at 08:00 Cefepime HCl (Maxipime 1gm/50 ml (Pmx)) 50 ml @ 100 mls/hr Q12 IVPB Last administered on 05/01/16 12:09; Admin Dose 100 MLS/HR; Start 04/30/16 at 21:00 Azithromycin (Zithromax) 250 mg DAILY PO ; Start 05/02/16 at 09:00 CYNDIE WOLFF NP May 01, 2016 14:57
[2016-05-02] VITALS (11 sets, daily range): BP systolic 126–160; BP diastolic 59–71; PULSE 71–133; RESP 15–18
[2016-05-02] MEDS: PANTOPRAZOLE 40 MG INJ IV SCH (05:37)
--- NOTE | 2016-05-02 07:18 | PN ---
Date/Time of Note Date/Time of Note DATE: 05/02/16 TIME: 07:17 Assessment/Plan VTE Prophylaxis VTE Prophylaxis Intervention: SCD's Lines/Catheters IV [facility]ter Type (from [facility] [place] [facility] Urinary Cath still in place: No Assessment/Plan Chief Complaint/Hosp Course 1. Paroxysmal atrial fibrillation. Currently converted to sinus rhythm. The patient being followed by Cardiology. The patient was ruled out for any underlying acute coronary syndrome. Status post cardiac stress test. 2. Right upper lobe patchy consolidation. Probably community-acquired pneumonia. Continue antibiotics. Infectious disease and pulmonary following. 3. Sepsis secondary to underlying pneumonia and gram-positive bacteremia. No evidence of septic shock. Continue antibiotics as per Infectious Disease. 4. Type 2 diabetes mellitus, uncontrolled. Hemoglobin A1c 8.4. Continue the patient on sliding scale insulin along with Lantus insulin, premeal insulin, and basal insulin. Adjust insulin dosing to obtain optimal blood sugar control. 5. Normocytic normochromic anemia. Iron panel showing iron deficiency. Continue iron supplements. 6. History of prostate cancer, status post treatment. 7. Fluid, electrolytes and nutrition. Carbohydrate controlled, low cholesterol diet. 8. Gastrointestinal prophylaxis. Proton pump inhibitors. 9. DVT prophylaxis. Bilateral sequential compression devices. PLAN: Continue antibiotics as per infectious diseases. Follow Cardiology and Pulmonary recommendations. Replete potassium. PT evaluation. Case discussed with . Problems: Subjective 24 Hr Interval Summary Free Text/Dictation Blood sugars running high. Exam/Review of Systems Vital Signs Vitals Vital Signs Date Time Temp Pulse Resp B/P Pulse Ox O2 Delivery O2 Flow Rate FiO2 05/02/16 04:36 74 05/02/16 04:00 98.9 15 160/70 95 05/02/16 03:57 3.0 05/01/16 20:50 Nasal Cannula Intake and Output 05/01/16 05/01/16 05/02/16 15:00 23:00 07:00 Intake Total 550 ml Output Total 2275 ml Balance -1725 ml Exam GENERAL: This is an obese male patient lying in bed in no apparent distress. HEENT: Head normocephalic and atraumatic. Eyes: Anicteric sclerae. Conjunctivae clear. ENT: Nasal septum is midline. Oral mucosa is dry. NECK: Supple. No JVD noticed. RESPIRATORY: Bilaterally diminished breath sounds. Coarse breath sounds heard on the right side. No use of accessory muscles of respiration. CARDIAC: Regular rate and rhythm with a soft systolic murmur. ABDOMEN: Soft, nontender and nondistended. Bowel sounds positive in all 4 quadrants. GENITOURINARY: Deferred. EXTREMITIES: No cyanosis, no clubbing, no edema. Peripheral pulses are palpable. NEUROLOGIC: The patient is awake, alert and oriented. Cranial nerves are grossly intact. Results Result Diagram: 05/01/16 0643 05/01/16 0645 Results 24 hrs Laboratory Tests Test 05/01/16 07:52 05/01/16 12:07 05/01/16 17:11 05/01/16 20:41 Bedside Glucose 234 H 334 H 320 H 281 H Medications Medications Current Medications Clonidine (Catapres) 0.1 mg Q4H PRN PO sbp>160; Start 04/29/16 at 13:00 Gemfibrozil (Lopid) 600 mg BID PO Last administered on 05/01/16 20:38; Admin Dose 600 MG; Start 04/29/16 at 21:00 Amlodipine Besylate (Norvasc) 5 mg BID PO Last administered on 05/01/16 08:10 ; Admin Dose 5 MG; Start 04/29/16 at 21:00 Miscellaneous Information 1 ea NOTE XX ; Start 04/29/16 at 13:30 Glucose (Glutose) 15 gm Q15M PRN PO DECREASED GLUCOSE; Start 04/29/16 at 13:30 Glucose (Glutose) 22.5 gm Q15M PRN PO DECREASED GLUCOSE; Start 04/29/16 at 13: 30 Dextrose (D50w Syringe) 25 ml Q15M PRN IV DECREASED GLUCOSE; Start 04/29/16 at 13:30 Dextrose (D50w Syringe) 50 ml Q15M PRN IV DECREASED GLUCOSE; Start 04/29/16 at 13:30 Glucagon (Glucagen) 1 mg Q15M PRN IM DECREASED GLUCOSE; Start 04/29/16 at 13:30 Glucose (Glutose) 15 gm Q15M PRN BUCCAL DECREASED GLUCOSE; Start 04/29/16 at 13 :30 Ondansetron HCl (Zofran Inj) 4 mg Q6H PRN IV NAUSEA AND/OR VOMITING; Start at 13:30 Acetaminophen (Tylenol Tab) 650 mg Q6H PRN PO PAIN LEVEL 1-3 OR FEVER; Start at 13:30 Acetaminophen (Tylenol Supp) 650 mg Q6H PRN [place] PAIN LEVEL 1-3 OR FEVER; Start 04/29/16 at 13:30 Acetaminophen/ Hydrocodone Bitart ([place] (5/325)) 1 tab Q6H PRN PO MODERATE PAIN LEVEL 4-6; Start 04/29/16 at 13:30 Acetaminophen/ Hydrocodone Bitart ([place] (5/325)) 2 tab Q6H PRN PO SEVERE PAIN LEVEL 7-10; Start 04/29/16 at 13:30 Morphine Sulfate (morphine) 2 mg Q4H PRN IV SEVERE PAIN LEVEL 7-10; Start 04/29 at 13:30 Docusate Sodium (Colace) 100 mg Q12H PRN PO CONSTIPATION; Start 04/29/16 at 13: 30 Magnesium Hydroxide (Milk Of Mag) 30 ml DAILY PRN PO CONSTIPATION; Start at 13:30 Bisacodyl (Dulcolax Supp) 10 mg DAILY PRN [place] CONSTIPATION; Start 04/29/16 at 13 :30 Pantoprazole (Protonix Iv) 40 mg DAILY@06 IV Last administered on 05/02/16 05: 37; Admin Dose 40 MG; Start 04/30/16 at 06:00 Furosemide (Lasix) 20 mg DAILY IV Last administered on 05/01/16 08:12; Admin Dose 20 MG; Start 04/30/16 at 09:00 Carvedilol 12.5 mg 12.5 mg BID PO Last administered on 05/01/16 08:11; Admin Dose 12.5 MG; Start 04/29/16 at 21:00 Ferric Sodium Gluconate Complex/ Sodium Chloride (Ferrlecit/NS) 110 ml @ 100 mls/hr Q24H IVPB Last administered on 05/01/16 14:47; Admin Dose 100 MLS/HR; Start 04/30/16 at 14:30; Stop 05/02/16 at 15:35 Insulin Glargine 15 unit 15 unit DAILY@08 SC Last administered on 05/01/16 08: 12; Admin Dose 15 UNIT; Start 05/01/16 at 08:00 Cefepime HCl (Maxipime 1gm/50 ml (Pmx)) 50 ml @ 100 mls/hr Q12 IVPB Last administered on 05/01/16t 20:37; Admin Dose 100 MLS/HR; Start 04/30/16 at 21:00 Azithromycin (Zithromax) 250 mg DAILY PO ; Start 05/02/16 at 09:00 Linagliptin (Tradjenta) 5 mg DAILY PO ; Start 05/02/16 at 09:00 CYNDIE WOLFF NP May 02, 2016 07:18
[2016-05-02] MEDS ORDERED: INSULIN GLARGINE [LANtus] 3 ML PEN SC SCH (08:00)
[2016-05-02] MEDS ORDERED: INSULIN ASPART [NOVOLOG] 3 ML PEN SC SCH (08:00)
[2016-05-02] MEDS: FUROSEMIDE 20 MG INJ IV SCH (08:26)
[2016-05-02] MEDS: CEFEPIME 1GM/50 ML (PMX) 50 ML IVPB SCH (08:26)
[2016-05-02] MEDS: AMLODIPINE 5 MG TAB PO SCH (08:27)
[2016-05-02] MEDS: GEMFIBROZIL 600 MG TAB PO SCH (08:28)
[2016-05-02 08:29] LABS: ADD SCAN DIFF NO
[2016-05-02] MEDS: INSULIN ASPART [NOVOLOG] 3 ML PEN SC SCH ×5 (08:29→17:28)
[2016-05-02 08:33] LABS: BASOPHILS % 0.2 % (0.0-2.0); EOSINOPHILS # 0.1 10^3/ul (0.0-0.5); EOSINOPHILS % 0.6 % (0.0-7.0); HEMATOCRIT 27.4 % (42.0-52.0); HEMOGLOBIN 9.1 g/dl (14.0-18.0); LYMPHOCYTES % 9.3 % (15.0-51.0); MEAN CORPUSCULAR HEMOGLOBIN 29.7 pg (29.0-33.0); MEAN CORPUSCULAR HGB CONC 33.2 g/dl (32.0-37.0); MEAN CORPUSCULAR VOLUME 89.5 fl (82.0-101.0); MEAN PLATELET VOLUME 11.3 fl (7.4-10.4); MONOCYTE # 0.8 10^3/ul (0.3-0.9); MONOCYTES % 7.8 % (0.0-11.0); NEUTROPHIL # 8.5 10^3/ul (1.6-7.5); NEUTROPHILS % 80.5 % (39.0-77.0); PLATELET COUNT 323 10^3/UL (140-415); RED BLOOD COUNT 3.06 10^6/ul (4.70-6.10); RED CELL DISTRIBUTION WIDTH 13.2 % (11.5-14.5); WHITE BLOOD COUNT 10.5 10^3/ul (4.8-10.8)
[2016-05-02] MEDS: ALBUTEROL/IPRATROPIUM (NEB) 3 ML AMP HHN SCH ×4 (08:41→20:38)
[2016-05-02 08:45] LABS: POTASSIUM 3.2 mmol/L (3.5-5.1)
[2016-05-02 08:47] LABS: CREATININE 0.82 mg/dl (0.61-1.24)
[2016-05-02 08:48] LABS: CALCIUM 8.7 mg/dl (8.4-10.2)
[2016-05-02] MEDS ORDERED: AZITHROMYCIN 250 MG TAB PO SCH (09:00)
[2016-05-02] MEDS ORDERED: LINAGLIPTIN 5 MG TABLET PO SCH (09:00)
[2016-05-02] MEDS ORDERED: POTASSIUM CHLORIDE (SR) 20 MEQ TAB PO STA (11:14)
--- NOTE | 2016-05-02 11:28 | PN ---
DATE: SUBJECTIVE: Mr. Martin remained stable this morning, awake, alert, comfortable and down to 3 L nasal cannula. No fever overnight. OBJECTIVE: VITAL SIGNS: Temperature 98, pulse is 73, blood pressure 156/60, O2 saturation 96% on 3 L nasal can nula. NECK: Supple. No JVD or lymphadenopathy. CARDIAC: S1, S2, no added sounds or murmurs. CHEST: Diminished air entry bilaterally. ABDOMEN: Soft, nontender. No guarding or rebound. EXTREMITIES: No cyanosis, clubbing ____ edema. NEUROLOGIC: Generalized weakness. LABORATORIES: White count down to 10.5, hemoglobin 9.1, platelets of 323. IMPRESSION AND PLAN: 1. Community-acquired pneumonia, right upper lobe consistent with streptococcal pneumonia. 2. Likely history of tracheobronchitis. The patient to continue on current antibiotics of Rocephin and azithromycin. 3. Continue glycemic management. 4. [facility] evaluation for possible transfer of care and continuing IV antibiotics with physical medicine physician apy. Dictated By: KAYY MALONEY/JOHN Conf#: [id number] DID#: [id number]
[2016-05-02] MEDS ORDERED: NPH, HUMAN INSULIN ISOPHANE 3ML VIAL SC ONE (13:00)
[2016-05-02] MEDS ORDERED: FLUCONAZOLE 200 MG TAB PO ONE (13:30)
--- NOTE | 2016-05-02 13:49 | PN ---
DATE: 05/02/2016 SUBJECTIVE: No acute events. The patient is awake, feels better. Looks comfortable on nasal cannula. WBC today 10.5, platelets 323, neutrophils 80.5. BUN 28, creatinine 0.82. MICROBIOLOGY: Blood and sputum culture growing alpha hemolytic strep species. A 2D echo was negative. ANTIMICROBIALS: The patient is on: 1. Cefepime. 2. Zithromax. PHYSICAL EXAMINATION: GENERAL: This is a well-developed elderly man who is alert, in no distress. HEENT: Head atraumatic, normocephalic. Sclerae anicteric. Buccal mucosa pink. NECK: Supple. CHEST: Rise symmetrical. Breath sounds diminished to bases. HEART: S1, S2. ABDOMEN: Soft, bowel sounds present. EXTREMITIES: Without cyanosis. ASSESSMENT: 1. Resolving sepsis. 2. Strep pneumonia with bacteremia. 3. Status post rapid atrial fibrillation. 4. Poorly controlled diabetes. PLAN: The patient remains stable. Repeat blood cultures negative, 2D echo negative. We are going to discontinue Zithromax, continue Cefepime. Give him a dose of Diflucan for Carly albicans that he grew from his sputum and start Nystatin oral swishes. Anticipate treating him with abx for a total of 2 weeks==> can be dc home on IV Rocephin Dictated By: ANNA MISHRA LEAD INFORMATICA DEVELOPER for RUDY FERNANDES/JOHN Conf#: [id number] DID#: [id number] MTDD
[2016-05-02] MEDS: SOD FERRIC GLUC COMPLX 125 MG in SOD CHLORIDE 0.9% 100 ML IVPB SCH (13:56)
--- NOTE | 2016-05-02 16:13 | PDOCDIS ---
Discharge Instructions DIAGNOSIS Discharge Diagnosis: Community acquired pneumonia CONDITION Patient Condition: Stable HOME CARE INSTRUCTIONS: Special Diet: Carbohydrate controlled diet OTHER ORDERS: Other Orders: 1. Medications as per medication list. 2. Carbohydrate controlled diet. 3. Activities with assist. CYNDIE WOLFF NP May 02, 2016 16:13
[2016-05-02] MEDS ORDERED: NYSTATIN SUSP 5 ML CUP PO SCH (17:00)
--- NOTE | 2016-05-02 17:09 | DS ---
DATE OF ADMISSION: 04/29/2016 DATE OF DISCHARGE: 05/02/2016 DISPOSITION: Transfer to [facility] FINAL DIAGNOSES: 1. Community-acquired pneumonia. 2. Sepsis secondary to community-acquired pneumonia, underlying gram-positive bacteremia. 3. Type II diabetes mellitus, uncontrolled. 4. Normocytic normochromic anemia. 5. Iron deficiency. 6. History of prostate cancer. 7. History of paroxysmal atrial fibrillation. CONSULTATIONS: 1. Dr. Charly Packer, cardiology. 2. Dr. Ricci Wagner, cardiology. 3. Dr. Jimmy Leon, pulmonology. 4. Dr. Berto Del Rio, pulmonology. 5. Dr. Aparna Frank, SENIOR [employer] APPLICATION DEVELOPER for infectious disease. HOSPITAL COURSE: This is an 81-year-old male with past medical history of essential hypertension, prostate cancer, and diabetes mellitus who came to the emergency room due to reports of dyspnea and increased weakness. In the emergency room, the patient was noticed to have a WBC of 23.8. The patient's chest x-ray showed a large elliptical density measuring up to 13 cm long axis x 6 cm cephalocaudad in right mid lung field. The patient also had lactic acidosis. Provided the patient's history of present illness, his comorbidities , and the diagnostic findings, a clinical decision was made to admit the patient to inpatient setting to have him further evaluated. The patient was admitted to inpatient telemetry floor. A cardiology consult and pulmonology consult were called on this patient. The patient had reported atrial fibrillation with rapid RVR; however, the patient's rhythm remained in sinus rhythm to sinus tachycardia during this hospital course. The patient was extensively evaluated by cardiology. The patient's 2D echocardiogram showed ejection fraction of 60%, stage I diastolic dysfunction, and PA systolic pressure of 32 mmHg. The patient underwent a nuclear medicine cardiac stress test that was negative for any reversible perfusion defects. The patient was cleared by cardiology for discharge. The patient's cardiac medications were optimized. The patient's chest CT scan showed consolidation in the right upper lobe with patchy consolidation within the left lower lobe. The patient's blood culture showed positive Streptococcus pneumoniae. Hence, pulmonary and infectious disease was following the patient. The patient's sputum culture showed alpha hemolytic streptococcus species. The patient's repeat blood cultures were negative. The patient had no evidence of any septic shock. The patient was maintained on antibiotics as per infectious disease. The patient also had uncontrolled blood sugars. The patient's hemoglobin A1c was found to be 8.4. The patient's insulin dosing was adjusted multiple times to obtain optimal blood sugar control. The patient was seen by a family living educator. The patient was also noticed to have normocytic normochromic anemia. The patient's iron panel showed low iron and low iron saturation. The patient was maintained on iron supplements. The patient was also noticed to be debilitated. Hence, a physical therapy evaluation was ordered. Meanwhile, pulmonary recommended transferring the patient to [facility] for further pulmonary rehabilitation and physical therapy. Hence, the patient will be transferred to [facility] for further pulmonary rehabilitation and further medical management including completion of antibiotics. DISCHARGE DISPOSITION AND PLAN: The patient will be discharged to [facility]. The patient will take a carbohydrate controlled diet. Activities will be with assist. Physical therapy will evaluate the patient at [facility]. Medications will be as per medication reconciliation. CONDITION AT DISCHARGE: Stable. DISCHARGE MEDICATIONS: 1. Lantus insulin 20 units subcutaneously daily. 2. NovoLog insulin 7 units subcutaneously with meals. 3. NovoLog insulin as per sliding scale. 4. Nystatin 5 mL p.o. q.i.d. 5. Linagliptin 5 mg p.o. daily. 6. Cefepime 1 gram IV q. 12 hours. 7. Lasix 20 mg IV daily. 8. DuoNeb inhalation q. 4 hours while awake. 9. Protonix 40 mg IV daily. 10. Gemfibrozil 600 mg p.o. b.i.d. 11. Amlodipine 5 mg p.o. b.i.d. 12. Coreg 12.5 mg p.o. b.i.d. 13. Zofran 4 mg IV q. 6 hours p.r.n. nausea and vomiting. 14. [place] 5/325, one tablet p.o. q. 6 hours p.r.n. pain. PERTINENT LABORATORY AND DIAGNOSTIC DATA: 1. 2D echocardiogram. Ejection fraction of 60% with stage I diastolic dysfunction. Mild aortic valve regurgitation. Estimated peak PA systolic pressure of 32 mmHg. There is mild tricuspid regurgitation. 2. CT scan of the chest: Consolidation within the right upper lobe with patchy consolidation within the left lower lobe. Image appearance is most likely the result of pneumonia. Mild reactive mediastinal lymphadenopathy. 3. Nuclear medicine cardiac stress test: No evidence of perfusion defects. No wall motion abnormalities. The left ventricular ejection fraction at stress is 57%. 4. Latest CBC: WBC 10.5, hemoglobin 9.1, hematocrit 27.4, platelet count 323. 5. Sodium 143, potassium 3.0, chloride 108, carbon dioxide 20, anion gap 17, BUN 20, creatinine 0.8, glucose 244, calcium 8.7, magnesium 1.8. 6. Hemoglobin A1c 8.4. 7. Fasting lipid panel: Triglycerides 108, total cholesterol 83, LDL 44, AST of 73. 8. Iron panel: Iron 17, TIBC 266, iron saturation 63. 9. Blood culture x2 from 04/29/2016 positive for Streptococcus pneumonia. 10. Sputum culture from 04/30/2016 positive for Carly albicans and alpha hemolytic streptococci. At this time, I would like to thank all the consultants for seeing the patient and providing clinical recommendations. The case and management of this patient was fully discussed with Dr. Dunn. Approximately 35 minutes was spent on coordinating the discharge on this patient. CYNDIE DUNN MD, AM/JOHN Conf#: [id number] DID#: [id number] MTDD
--- NOTE | 2016-05-02 19:55 | CONS ---
Date/Time of Note Date/Time of Note DATE: 05/02/16 TIME: 19:52 Assessment/Plan Assessment/Plan Chief Complaint/Hosp Course Imp: 1.abnl ecg-asses for acs-negative troponin's/Lexiscan negative for ischemia/NL EF 2.HTN 3.H/O PAF 4.PNA 5.Elevated BNP asses for CHF Recc: -Tele -continue gentle daily lasix diuresis and follow volume status closely -Continue abx's and f/u cx data -Continue coreg/norvasc and follow BP closely -start asa given h/op PAF -To be transferred o [place] -Replete KCL Problems: Consultation Date/Type/Reason Admit Date/Time Apr 29, 2016 at 12:34 Initial Consult Date 04/29/16 Type of Consultation: Cardiology Reason for Consultation AF/SVT Referring Provider: ARABELLA RODRIGUEZ Exam/Review of Systems Vital Signs Vitals Vital Signs Date Time Temp Pulse Resp B/P Pulse Ox O2 Delivery O2 Flow Rate FiO2 05/02/16 16:52 3.0 05/02/16 16:52 75 18 97 Nasal Cannula 05/02/16 16:09 98.0 132/63 Intake and Output 05/01/16 05/01/16 05/02/16 15:00 23:00 07:00 Intake Total 550 ml Output Total 2275 ml Balance -1725 ml Exam ,Review of Systems: CONSTITUTIONAL: No fevers, chills. PULMONARY: mild sob CARDIOVASCULAR: No chest pain/palpitations GASTROINTESTINAL: No nausea/vomiting. GENITOURINARY: No hematuria/dysuria. MUSCULOSKELETAL: No myagias/arthalgias. PSYCHIATRIC: The patient denies depression. NEUROLOGIC: No weakness Constitutional: alert, oriented Psych: no complaints Head: normocephalic ENMT: mucosa pink and moist Neck: jvd (8 cm water), supple Respiratory: diminished breath sounds (at bases/B) Cardiovascular: regular rate and rhythm Gastrointestinal: non-tender, soft Musculoskeletal: muscle tone (normal) Extremities: edema Neurological: other (No focal deficits) Results Result Diagram: 05/02/16 0740 05/02/16 0740 Results 24 hrs Laboratory Tests Test 05/01/16 20:41 05/02/16 07:40 05/02/16 08:24 05/02/16 11:57 Bedside Glucose 281 H 281 H 332 H White Blood Count 10.5 # Red Blood Count 3.06 L Hemoglobin 9.1 L Hematocrit 27.4 L Mean Corpuscular Volume 89.5 Mean Corpuscular Hemoglobin 29.7 Mean Corpuscular Hemoglobin Concent 33.2 Red Cell Distribution Width 13.2 Platelet Count 323 Mean Platelet Volume 11.3 H Neutrophils % 80.5 H Lymphocytes % 9.3 L Monocytes % 7.8 Eosinophils % 0.6 Basophils % 0.2 Nucleated Red Blood Cells % 0.0 Neutrophils # 8.5 H Lymphocytes # 1.0 Monocytes # 0.8 Eosinophils # 0.1 Basophils # 0.0 Nucleated Red Blood Cells # 0.0 Sodium Level 143 Potassium Level 3.2 L Chloride Level 108 Carbon Dioxide Level 21 Anion Gap 17 H Blood Urea Nitrogen 28 H Creatinine 0.82 Glucose Level 244 H Calcium Level 8.7 Magnesium Level 1.8 Test 05/02/16 17:23 Bedside Glucose 227 H Medications Medications Current Medications Clonidine (Catapres) 0.1 mg Q4H PRN PO sbp>160; Start 04/29/16 at 13:00 Gemfibrozil (Lopid) 600 mg BID PO Last administered on 05/02/16 08:28; Admin Dose 600 MG; Start 04/29/16 at 21:00 Amlodipine Besylate (Norvasc) 5 mg BID PO Last administered on 05/02/16 08:27 ; Admin Dose 5 MG; Start 04/29/16 at 21:00 Miscellaneous Information 1 ea NOTE XX ; Start 04/29/16 at 13:30 Glucose (Glutose) 15 gm Q15M PRN PO DECREASED GLUCOSE; Start 04/29/16 at 13:30 Glucose (Glutose) 22.5 gm Q15M PRN PO DECREASED GLUCOSE; Start 04/29/16 at 13: 30 Dextrose (D50w Syringe) 25 ml Q15M PRN IV DECREASED GLUCOSE; Start 04/29/16 at 13:30 Dextrose (D50w Syringe) 50 ml Q15M PRN IV DECREASED GLUCOSE; Start 04/29/16 at 13:30 Glucagon (Glucagen) 1 mg Q15M PRN IM DECREASED GLUCOSE; Start 04/29/16 at 13:30 Glucose (Glutose) 15 gm Q15M PRN BUCCAL DECREASED GLUCOSE; Start 04/29/16 at 13 :30 Ondansetron HCl (Zofran Inj) 4 mg Q6H PRN IV NAUSEA AND/OR VOMITING; Start at 13:30 Acetaminophen (Tylenol Tab) 650 mg Q6H PRN PO PAIN LEVEL 1-3 OR FEVER; Start at 13:30 Acetaminophen (Tylenol Supp) 650 mg Q6H PRN [place] PAIN LEVEL 1-3 OR FEVER; Start 04/29/16 at 13:30 Acetaminophen/ Hydrocodone Bitart ([place] (5/325)) 1 tab Q6H PRN PO MODERATE PAIN LEVEL 4-6; Start 04/29/16 at 13:30 Acetaminophen/ Hydrocodone Bitart ([place] (5/325)) 2 tab Q6H PRN PO SEVERE PAIN LEVEL 7-10; Start 04/29/16 at 13:30 Morphine Sulfate (morphine) 2 mg Q4H PRN IV SEVERE PAIN LEVEL 7-10; Start 04/29 at 13:30 Docusate Sodium (Colace) 100 mg Q12H PRN PO CONSTIPATION; Start 04/29/16 at 13: 30 Magnesium Hydroxide (Milk Of Mag) 30 ml DAILY PRN PO CONSTIPATION; Start at 13:30 Bisacodyl (Dulcolax Supp) 10 mg DAILY PRN [place] CONSTIPATION; Start 04/29/16 at 13 :30 Pantoprazole (Protonix Iv) 40 mg DAILY@06 IV Last administered on 05/02/16 05: 37; Admin Dose 40 MG; Start 04/30/16 at 06:00 Furosemide (Lasix) 20 mg DAILY IV Last administered on 05/02/16 08:26; Admin Dose 20 MG; Start 04/30/16 at 09:00 Carvedilol 12.5 mg 12.5 mg BID PO Last administered on 05/02/16 08:28; Admin Dose 12.5 MG; Start 04/29/16 at 21:00 Cefepime HCl (Maxipime 1gm/50 ml (Pmx)) 50 ml @ 100 mls/hr Q12 IVPB Last administered on 05/02/16 08:26; Admin Dose 100 MLS/HR; Start 04/30/16 at 21:00 Linagliptin (Tradjenta) 5 mg DAILY PO Last administered on 05/02/16 08:27; Admin Dose 5 MG; Start 05/02/16 at 09:00 Insulin Glargine (Lantus) 20 unit DAILY@08 SC ; Start 05/03/16 at 08:00 Nystatin (Nystatin Susp) 5 ml QID PO Last administered on 05/02/16t 17:22; Admin Dose 5 ML; Start 05/02/16 at 17:00 FARAZ CHANCE May 02, 2016 19:55
[2016-05-03] MEDS ORDERED: INSULIN GLARGINE [LANtus] 3 ML PEN SC SCH (08:00)
[2016-05-03] MEDS ORDERED: ASPIRIN (EC) 81 MG TAB PO SCH (09:00)
== END 2016-05-02 22:00 | DRG 871 ==
LOC: E/R 09:10 → MS4 12:34
PROVIDERS: ADMIT Internal Medicine; ATTEND Internal Medicine
DX: A40.3 Sepsis due to Streptococcus pneumoniae (principal); J18.9 Pneumonia, unspecified organism; I50.33 Acute on chronic diastolic (congestive) heart failure; E11.65 Type 2 diabetes mellitus with hyperglycemia; D64.9 Anemia, unspecified; I48.91 Unspecified atrial fibrillation; I11.0 Hypertensive heart disease with heart failure; R09.02 Hypoxemia
CPT/HCPCS: 36415; 71010; 71260; 78452; 80048; 80053; 80061; 81001; 81003; 82010; 82962; 83036; 83540; 83605; 83735; 83880; 84100; 84436; 84443; 84479; 84484; 85025; 85610; 85730; 87040; 87070; 87086; 93005; 93017; 93306; 94640; 94664; 96372; 96374; 96375; J1940; A9500; A9505; C9113; J0456; J0692; J0696; J1815; J2785; J2916; J3370; J7030; J7040; J7050; Q9967